=== PATIENT | male | born 1950 | race Hispanic/Latino ===

== ENCOUNTER → 2018-11-16 | Outpatient (CLI) | payer MEDICARE, BC ==
[~2018-11-16] MED LIST: AMLODIPINE BESYL5 MG PO; LEVAQUIN500 MG PO; LISINOPRIL10 MG PO; NAPROXEN250 MG PO; TYLENOL WITH C1 EACH PO
--- NOTE | 2018-11-16 10:54 | Diagnostic Imaging Report ---
EXAMINATION: CT of the abdomen and pelvis without contrast. TECHNIQUE: Spiral CT images of the abdomen and pelvis were performed from the lung bases to the lesser trochanters. No intravenous contrast was given per renal stone protocol. Coronal and sagittal reformatted images were obtained. RADIATION DOSE: DLP: 713.1 mGy-cm Dose modulation, iterative reconstruction, and/or weight based adjustment of the mA/kV was utilized to reduce the radiation dose to as low as reasonably achievable. COMPARISON: CT abdomen/pelvis 01/31/2017. CLINICAL HISTORY: Renal calculus. DISCUSSION: ABSENCE OF INTRAVENOUS CONTRAST DECREASES SENSITIVITY FOR DETECTION OF FOCAL LESIONS AND VASCULAR PATHOLOGY. LOWER THORAX: A 4 mm right middle lobe subpleural nodule is unchanged from CT on 01/31/2017. Patchy dependent atelectasis. Mild subpleural reticular opacities in the lower lobes could represent mild interstitial changes. HEPATOBILIARY:No focal hepatic lesions. Similar appearance of multiple hepatic cysts. No biliary ductal dilation. The gallbladder is unremarkable. SPLEEN: No splenomegaly. PANCREAS: No evidence of focal masses or ductal dilatation. ADRENALS: No adrenal nodules. KIDNEYS/URETERS: Again noted is bilateral renal rotation, left greater than right. There is been interval increase in size of bilateral nonobstructing renal stones. For example, a 4 mm left upper pole stone, previously 2 mm. Interval development of an 8 mm right lower pole renal stone. No evidence of ureteral stone. PELVIC ORGANS/BLADDER: The bladder is partially decompressed. PERITONEUM/RETROPERITONEUM: No free air or fluid. LYMPH NODES: No evidence of lymphadenopathy. VESSELS: There are moderate atherosclerotic calcifications in the aorta and branch vessels. GI TRACT: No distention or wall thickening. Diverticulosis without evidence of diverticulitis. The appendix is not well-visualized, however there are no secondary signs of appendicitis. BONES AND SOFT TISSUES: No bony destructive lesions. Mild degenerative changes of the lower lumbar spine. IMPRESSION: Enlarging bilateral nonobstructing renal stones. New 8 mm right lower pole renal stone. No evidence of hydronephrosis or ureteral stone. Signed by: Dr. Nguyen Calderon MD on 11/16/2018 10:51 AM
== END ==
LOC: CT 09:21
PROVIDERS: ATTEND Urology
DX: N20.0 Calculus of kidney (principal)
CPT/HCPCS: 74176

== ENCOUNTER → 2019-01-09 | Day surgery (SDC) | payer MEDICARE, BC ==
[2019-01-03 12:45] LABS: BASOPHILS # (AUTO) 0.1 (0.0-0.1); BASOPHILS % 0.7 % (0.0-1.0); EOSINOPHILS # (AUTO) 0.1 (0.0-0.4); EOSINOPHILS % 1.6 % (0.0-6.0); HEMATOCRIT 44.6 % (38.2-49.6); HEMOGLOBIN 15.1 g/dL (14.0-18.0); LYMPHOCYTES # (AUTO) 1.6 (1.0-3.2); LYMPHOCYTES % 23.3 % (18.0-39.1); MEAN CORPUSCULAR HEMOGLOBIN 29.1 pg (28-32); MEAN CORPUSCULAR HGB CONC 33.9 g/dL (31-35); MEAN CORPUSCULAR VOLUME 85.9 fL (81-99); MONOCYTES # (AUTO) 0.6 (0.2-0.8); MONOCYTES % 8.4 % (4.4-11.3); NEUTROPHILS # (AUTO) 4.6 (2.1-6.9); NEUTROPHILS % 65.3 % (38.7-80.0); PLATELET COUNT 225 x10e3/uL (140-360); RED BLOOD COUNT 5.19 x10e6/uL (4.3-5.7); RED CELL DISTRIBUTION WIDTH 14.8 % (11.7-14.4)
[2019-01-03 13:05] LABS: ANION GAP 13.8 mmol/L (8-16); BLOOD UREA NITROGEN 13 mg/dL (7-26); BUN/CREATININE RATIO 20 (6-25); CALCIUM 10.1 mg/dL (8.4-10.2); CARBON DIOXIDE 19 mmol/L (22-29); CHLORIDE 105 mmol/L (98-107); CREATININE, SERUM 0.66 mg/dL (0.72-1.25); EST GLOMERULAR FILTRATION RATE > 60 ML/MIN (60-); GLUCOSE 104 mg/dL (74-118); POTASSIUM 3.8 mmol/L (3.5-5.1); SODIUM 134 mmol/L (136-145)
--- NOTE | 2019-01-03 13:25 | Diagnostic Imaging Report ---
EXAMINATION: CHEST 2 VIEWS INDICATION: Pre-admit. COMPARISON: CT ABdomen/Pelvis 11/16/2018. FINDINGS: TUBES and LINES: None. LUNGS: Low lung volumes which decreases sensitivity and specificity for pathology. No evidence of pneumonia or pulmonary edema. Right middle lobe pulmonary nodule noted on CT from 11/16/2018 is not well-visualized by radiograph. PLEURA: No pleural effusion or pneumothorax. HEART AND MEDIASTINUM: The cardiomediastinal silhouette is unremarkable. BONES AND SOFT TISSUES: No acute osseous abnormality. UPPER ABDOMEN: No free air under the diaphragm. IMPRESSION: No acute radiographic abnormality. Signed by: Dr. Nguyen Calderon MD on 01/03/2019 1:22 PM
--- NOTE | 2019-01-03 15:08 | Diagnostic Imaging Report ---
Exam: KUB - 2 views Clinical History: Renal stone. Comparison: CT Abdomen/Pelvis without contrast 11/16/2018. Findings: Multiple right-sided renal calcifications, measuring up to 8 mm in the lower pole. Bowel gas partially obscures visualization of the left kidney. A 3 mm calcification projects over the left upper pole kidney, corresponding to the stone noted on prior CT. No evidence of ureteral stone. Nonobstructive bowel gas pattern. No acute osseous abnormality. Atherosclerotic vascular calcifications. Impression: Bilateral renal stones, measuring up to 8 mm in the right lower pole. Signed by: Dr. Nguyen Calderon MD on 01/03/2019 3:05 PM
[~2019-01-09] MED LIST changes: +B&O 60MG R/S 60 MG SUPP PR ONE; +CEFTRIAXONE SOD 1 GM/NS 50 ML 50 ML IV ONE; +DEXAMETHASONE SOD PHOS INJ 4 MG/ML VIAL ONE; +FENTANYL CITRATE/PF 100MCG/2 ML INJ ONE; +GLYCOPYRROLATE INJ 1MG/ 5 ML SYR ONE; +IBUPROFEN400 MG PO; +IOPAMIDOL 610MG/1ML 300 MG/ML VIAL IV ONE; +LIDOCAINE HCL 2% LOCAL INJ 5 ML SDV VIAL INJ ONE; +MIDAZOLAM HCL 2 MG/2 ML VIAL ONE; +ONDANSETRON HCL INJ 2MG/ML 2ML 2 MG/ML VIAL ONE; +PROPOFOL IV EMULSION 10 MG/ML 20 ML VIAL ONE; +SEVOFLURANE INHAL SOLN 250 ML PEN BTL ONE
--- OUTSIDE RECORDS SUMMARY | 2019-01-09 08:22 | XMS REPORT | Clinical Summary ---
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 11/19/2018 Discontinued amLODIPine (NORVASC) 5 mg TK 1 T PO QD 5 tablet FOR 7 HYPERTENSION 03/28/2018 Discontinued hydroCHLOROthiazide TK ONE T PO 2 (HYDRODIURIL) 12.5 MG QD 7 tablet 03/28/2018 Discontinued traZODone (DESYREL) 100 TK 1 T PO 2 MG tablet QHS 7 02/14/2018 Discontinued ibuprofen (ADVIL,MOTRIN) TAKE 1 TABLET 270 tablet 0 600 MG tablet BY MOUTH 8 THREE TIMES DAILY AFTER MEALS( STOP RELAFEN) 09/18/2018 Discontinued ibuprofen (ADVIL,MOTRIN) One tablet 4 120 tablet 0 600 MG tabletIndications: times a day 8 Lumbar stenosis with with food as neurogenic claudication, needed Status post lumbar laminectomy 07/05/2018 Discontinued escitalopram (LEXAPRO) 20 0 201 MG tablet 8 04/27/2018 ibuprofen (ADVIL,MOTRIN) Take 1 tablet 90 tablet 0 800 MG tablet (800 mg 8 total) by mouth every 6 (six) hours as needed for mild pain for up to 30 days. 05/09/2018 Discontinued naproxen (NAPROSYN) 500 Take 500 mg 0 MG tablet by mouth 2 (two) times a day with meals. 06/08/2018 ibuprofen (ADVIL,MOTRIN) Take 1 tablet 60 tablet 0 800 MG tablet (800 mg 8 total) by mouth every 8 (eight) hours as needed for mild pain or moderate pain for up to 30 days. 05/19/2018 acetaminophen-codeine Take 1 tablet 30 tablet 0 (TYLENOL WITH CODEINE #3) by mouth 8 300-30 mg per tablet every 6 (six) hours as needed for moderate pain for up to 10 days. 06/06/2018 Discontinued meloxicam (MOBIC) 7.5 mg TK 1 T PO Q 2 tablet 12 H 8 06/11/2018 Discontinued diclofenac (VOLTAREN) 1 % 2 grams 3 Tube 2 gel topically QID 8 07/06/2018 acetaminophen-codeine Take 1 tablet 30 tablet 0 (TYLENOL WITH CODEINE #3) by mouth 8 300-30 mg per tablet every 6 (six) hours as needed for moderate pain for up to 30 days. 07/05/2018 Discontinued diclofenac (VOLTAREN) 1 % Apply 2 grams 3 Tube 2 gelIndications: Right to Rt elbow 8 lateral epicondylitis QID. 11/19/2018 Discontinued ibuprofen (ADVIL,MOTRIN) TAKE 1 TABLET 120 tablet 0 600 MG tabletIndications: BY MOUTH FOUR 9 Lumbar stenosis with TIMES DAILY neurogenic claudication, WITH FOOD Status post lumbar NEEDED laminectomy Status Hospital, Clinic, or Ordered Dose Route Frequency Start End Date Other Facility Date Administered Medication Discontinued lidocaine (XYLOCAINE) 10 15 mg inj once 03/12/20 mg/mL (1 %) injection 15 18 8 mg Active Problems Problem Noted Date Primary osteoarthritis of both hips 11/19/2018 Lumbar radiculopathy 10/22/2018 Wheelchair dependence 10/22/2018 Bilateral paresis 10/22/2018 Lumbosacral radiculopathy due to degenerative joint disease of spine 10/22/2018 Acute pain of right shoulder 05/09/2018 Primary osteoarthritis of right shoulder 05/09/2018 Lateral epicondylitis of right elbow 04/11/2018 DDD (degenerative disc disease), lumbar 04/11/2018 Bilateral hip pain 03/08/2018 Bilateral hip joint arthritis 03/08/2018 Status post lumbar laminectomy 11/09/2017 Primary osteoarthritis of right hip 10/06/2017 Primary osteoarthritis of left hip 09/08/2017 Aftercare following surgery of the musculoskeletal system 08/09/2017 Lumbar stenosis with neurogenic claudication 07/10/2017 Overview: Added automatically from request for surgery [id number] Degenerative lumbar spinal stenosis 06/26/2017 Multiple joint pain 06/20/2017 Chronic bilateral low back pain 06/20/2017 Hypercalcemia 11/05/2012 Encounters Care Team Description Date Type Specialty Fawn Martinez MD Lumbar radiculopathy (Primary Dx); Right foot drop 12/27/2018 Orders Only Physical Medicine and Rehabilitation Oli Cameron MD Primary osteoarthritis of both hips (Primary Dx); Bilateral hip pain; Left hip pain; Multiple joint pain 11/19/2018 Office Visit Orthopedic Surgery Fawn Martinez MD Lumbosacral radiculopathy due to degenerative joint disease of spine (Primary Dx); Right foot drop; Lumbar radiculopathy; Chronic bilateral low back pain, with sciatica presence unspecified; Bilateral hip pain; Primary osteoarthritis of right shoulder; Bilateral hip joint arthritis; Wheelchair dependence 10/22/2018 Office Visit Physical Medicine and Rehabilitation Fawn Martinez MD Decreased mobility (Primary Dx) 10/19/2018 Transcribe Physical Therapy Orders Oli Cameron MD DDD (degenerative disc disease), lumbar; Status post lumbar laminectomy 10/02/2018 Hospital Radiology Encounter Katie Solis 10/02/2018 Telephone Employee Health Oli Cameron MD DDD (degenerative disc disease), lumbar (Primary Dx); Status post lumbar laminectomy 2018 Office Visit Orthopedic Surgery Brodie Lui MD Lumbar stenosis with neurogenic claudication; Status post lumbar laminectomy 09/18/2018 Refill Orthopedic Surgery Oli Cameron MD Degenerative lumbar spinal stenosis; Status post lumbar laminectomy 07/09/2018 Hospital Radiology Encounter Oli Cameron MD Degenerative lumbar spinal stenosis (Primary Dx); Status post lumbar laminectomy 07/05/2018 Office Visit Orthopedic Surgery System, Provider Not In, Tendonitis (Primary Dx) 06/19/2018 Transcribe Radiology Orders Jillian Vargas MA 06/18/2018 Telephone Orthopedic Surgery Marika Lui RN Right lateral epicondylitis (Primary Dx) 06/11/2018 Refill Orthopedic Surgery Brodie Lui MD Lateral epicondylitis of right elbow (Primary Dx) 06/06/2018 Office Visit Orthopedic Surgery Oli Cameron MD Lumbar stenosis with neurogenic claudication (Primary Dx) 05/10/2018 Office Visit Orthopedic Surgery Kaela Barker MA Primary osteoarthritis of right shoulder (Primary Dx); Acute pain of right shoulder; Right lateral epicondylitis 05/10/2018 Orders Only Orthopedic Surgery Brodie Lui MD Acute pain of right shoulder (Primary Dx); Primary osteoarthritis of right shoulder; Lateral epicondylitis of right elbow 05/09/2018 Office Visit Orthopedic Surgery Oli Cameron MD Postlaminectomy syndrome of lumbar region; Left leg pain 04/23/2018 Hospital Radiology Encounter Oli Cameron MD Lumbar stenosis with neurogenic claudication (Primary Dx); Status post lumbar laminectomy 04/19/2018 Office Visit Orthopedic Surgery Kaela Barker MA Postlaminectomy syndrome of lumbar region (Primary Dx); Left leg pain 04/19/2018 Orders Only Orthopedic Surgery Fawn Martinez MD Decreased mobility (Primary Dx) 04/16/2018 Transcribe Physical Therapy Orders Brodie Lui MD Lateral epicondylitis of right elbow (Primary Dx); DDD (degenerative disc disease), lumbar; Primary osteoarthritis of both hips; Aftercare following surgery of the musculoskeletal system; Degenerative lumbar spinal stenosis; Bilateral hip joint arthritis 04/11/2018 Office Visit Orthopedic Surgery Brodie Lui MD Primary osteoarthritis of left hip (Primary Dx); Primary osteoarthritis of right hip; Lumbar stenosis with neurogenic claudication; Chronic bilateral low back pain, with sciatica presence unspecified 03/28/2018 Office Visit Orthopedic Surgery Brodie Lui MD Bilateral hip pain (Primary Dx); Degenerative lumbar spinal stenosis; Bilateral hip joint arthritis 03/07/2018 Office Visit Orthopedic Surgery Oli Cameron MD Lumbar stenosis with neurogenic claudication (Primary Dx); Status post lumbar laminectomy 02/14/2018 Office Visit Orthopedic Surgery after 01/08/2018 Family History Medical History Relation Name Comments Hypertension Mother Relation Name Status Comments Father Mother Social History Date Tobacco Use Types Packs/Day Years Used Former Smoker Smokeless Tobacco: Former User Alcohol Use Drinks/Week oz/Week Comments Yes rarely Sex Assigned at Date Recorded Not on file Industry Job Start Date Occupation Not on file Not on file Not on file Travel End Travel History Travel Start No recent travel history available. 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 Temperature 36.2 C (97.2 F) 12/03/2018 11:17 AM CDT Respiratory Rate 18 11/29/2018 10:52 AM CDT Oxygen Saturation 92% - Inhaled Oxygen - Concentration 11/29/2018 10:52 AM CDT Weight 88.5 kg (195 lb) 10/02/2018 9:26 AM [employer]ER[employer] SUPERVISOR Height 160 cm (5' 3") 10/02/2018 9:26 AM [employer] SUPERVISOR Body Mass Index 34.54 Plan of Treatment Care Team Description Date Type Specialty Zoraida Díaz, [address] [facility] [address] [place] [id number] 03/15/2019 Office Visit Rheumatology Fawn Martinez MD [address] [facility] [address] [place] [id number] 04/24/2019 Office Visit Physical Medicine and Rehabilitation Health Maintenance Due Date Last Done Comments COLON CANCER SCREENING 2001 SHINGLES VACCINES (#1) 2001 65+ PNEUMOCOCCAL VACCINE 2016 (1 of 2 - PCV13) PNEUMOCOCCAL 2016 POLYSACCHARIDE VACCINE AGE 65 AND OVER INFLUENZA VACCINE 03/07/2019 Implants Device Identifier Shelf Expiration Date Model / Serial / Lot Implanted Type Area Manufactur er [id number] / / Matrix [employer] Floseal 5ml W/ Humn F2 Surgical N/A: N/A [employer] - [id number] Implants; HEALTHCARE Implanted: Qty: 1 on 07/17/2017 by [employer]; Oli Nathan MD Extenders; Surgical Wires Procedures Comments Procedure Name Priority Date/Time Associated Diagnosis FL FLUOROSCOPY GUIDED Routine 12/03/2018 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 Bilateral hip pain FL FLUOROSCOPY GUIDED Routine 11/29/2018 Primary osteoarthritis of INJECTION 11:00 AM CDT both hips Bilateral hip pain XR HIP 2-3 VIEWS LEFT Routine 11/19/2018 Left hip pain 10:33 AM CDT VT MD SERVICE REQUIRED Routine 10/22/2018 Wheelchair dependence FOR PMD 8:45 AM CDT Lumbar radiculopathy Lumbosacral radiculopathy due to degenerative joint disease of spine IR EPIDURAL STEROID INJ Routine 10/02/2018 DDD (degenerative disc TRANSFORAM LUMBAR LEFT 10:47 AM POLIC[employer] CHANGE CLERKS SUPERVISOR disease), lumbar (NERVE ROOT BLOCK) Status post lumbar laminectomy IR EPIDURAL STEROID INJ Routine 07/09/2018 Degenerative lumbar TRANSFORAM LUMBAR LEFT 11:03 AM POLIC[employer] CHANGE CLERKS SUPERVISOR spinal stenosis (NERVE ROOT BLOCK) Status post lumbar laminectomy MRI UPPER EXTREMITY JOINT Routine 06/26/2018 Tendonitis WO CONTRAST RIGHT 10:59 AM [employer] CHANGE CLERKS SUPERVISOR MRI SHOULDER WO CONTRAST Routine 06/26/2018 Tendonitis RIGHT 10:59 AM [employer] CH[employer]ERKS SUPERVISOR XR SHOULDER 2+ VW RIGHT Routine 05/09/2018 Acute pain of right 10:53 AM CDT shoulder VT ARTHROCENTESIS Routine 05/09/2018 Acute pain of right ASPIR&/INJ MAJOR JT/BURSA 10:20 AM CDT shoulder W/O US Primary osteoarthritis of right shoulder IR EPIDURAL STEROID INJ Routine 04/23/2018 Postlaminectomy syndrome TRANSFORAM LUMBAR LEFT 2:40 PM CDT of lumbar region (NERVE ROOT BLOCK) Left leg pain XR ELBOW 3+ VW RIGHT Routine 04/11/2018 Lateral epicondylitis of 11:01 AM CDT right elbow MRI LUMBAR SPINE W WO Routine 04/02/2018 Lumbar stenosis with CONTRAST 11:34 AM CDT neurogenic claudication POC CREATININE Routine 04/02/2018 11:10 AM CDT ESTIMATED GFR Routine 04/02/2018 11:10 AM CDT FL FLUOROSCOPY GUIDED Routine 03/12/2018 Bilateral hip pain INJECTION 11:46 AM CDT FL FLUOROSCOPY GUIDED Routine 03/12/2018 Bilateral hip pain INJECTION 11:00 AM CDT XR HIPS BILATERAL AP Routine 03/07/2018 Bilateral hip pain LATERAL W AP PELVIS 3:08 PM CDT XR LUMBAR SPINE COMPLETE Routine 02/14/2018 Lumbar stenosis with 4+ VW 10:42 AM CDT neurogenic claudication Status post lumbar laminectomy after 01/08/2018 Results * FL Fluoroscopy Guided Injection (12/03/2018 12:00 PM CDT) Only the most recent of 4 results within the time period is included. Specimen Narrative Performed At EXAMINATION:FL FLUOROSCOPY GUIDED INJECTION [facility] CLINICAL HISTORY:M16.0 Bilateral primary osteoarthritis of hip, M25.551 Pain in right hip, RIGHT HIP PAIN COMPARISON:None. Radiation dose:29.792 mGy IMPRESSION: 1.After obtaining patient consent, patient was prepared and draped in usual sterile fashion. 1% lidocaine was used for local anesthesia. Using fluoroscopic guidance and a 22-gauge needle, the right hip joint space was accessed, and a small amount of contrast was placed into the joint to confirm positioning. Subsequently, anesthetic/steroid mixture were placed into the joint as per ordering physician's request. [id number] Procedure Note Hm Interface, Radiology Results Incoming - 12/03/2018 4:57 PM CDT EXAMINATION: FL FLUOROSCOPY GUIDED INJECTION CLINICAL HISTORY: M16.0 Bilateral primary osteoarthritis of hip, M25.551 Pain in right hip, RIGHT HIP PAIN COMPARISON: None. Radiation dose: 29.792 mGy IMPRESSION: 1. After obtaining patient consent, patient was prepared and draped in usual sterile fashion. 1% lidocaine was used for local anesthesia. Using fluoroscopic guidance and a 22-gauge needle, the right hip joint space was accessed, and a small amount of contrast was placed into the joint to confirm positioning. Subsequently, anesthetic/steroid mixture were placed into the joint as per ordering physician's request. [id number] Performing Organization Address City/[facility]/Zipcode Phone Number [facility] [address] [place] [address] * XR Hip 2-3 View Left (11/19/2018 10:33 AM CDT) Specimen Narrative Performed At [facility] AP and lateral x-rays of the left hip demonstrate mild medial joint space narrowing.No periarticular osteophytes are noted.No soft tissue calcifications are seen.No lytic or blastic lesions within the pelvis are noted. Performing Organization Address [facility]/Rustcode Phone Number [facility] [address] [place] [address] * Mobility Exam (10/22/2018 8:45 AM CDT) Narrative Performed At Fawn Martinez MD 10/22/20184:28 PM Mobility Exam Date/Time: 10/22/2018 9:10 AM Performed by: Fawn Martinez MD Authorized by: Fawn Martinez MD Medical conditon(s)/disease(s) limiting patient's mobility in home: Paraplegia/Paraparesis Physical Exam - Symptoms/ Limitations / Pain: SYMPTOMS:Risk of Falls, History of Falls, Abnormal Gait, Unsafe Gait and Balance Deficits Upper Body Weakness:Mild Upper Body Pain:Mild Upper Body Range of Motion:Partially Limited Lower Body Weakness:Moderate Lower Body Pain:Moderate Lower Body Range of Motion:Partially Limited PAIN LOCATION:R Elbow, L Elbow, R Wrist, L Wrist, R Hand, L Hand, R Hip, L Hip, R Thigh, L Thigh, R Knee, L Knee, R Ankle, L Ankle, Lower Back, L Shoulder and R Shoulder Mobility Questions: Patient has ability to stand from seated position without assistance?: No Patient Transfer:Moderate Assistance Can patient lift themselves from seated surface using only upper extremities?: No History of pressure sores?: No Current pressure sores?: No Upper Extremity Edema: No Lower Extremity Edema: Yes LE Edema Severity:Mild Mobility Related Activities of Daily Living: Without a mobility aid, how far can patient walk without stopping (ft)?: 0 Distance allows patient to complete MRADL in safe and timely manner?: No Select all MRADL that patient is unable to accomplish due to mobility limitations.:Dressing, Grooming, Light Housekeeping, Toileting, Eating, Meal Prep, Bathing and Moving from Room to Room Is patient willing and have cogintion, judgment and/or vision to independently participate in MRADLs with a mobility device?: Yes Will a cane or walker allow patient to complete all MRADLs safely and timely?: No Does patient have sufficient upper and/or lower extremity strength to self-propel an optimally configured manual wheelchair to complete all MRADLs safely and timely?: No Scooter use requires a patient to have sufficient trunk strength, 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 Given these requirements, is a scooter appropriate?: No Reason(s):Patient has insufficient upper extremity function and/or strength, Patient has insufficient trunk stability and Patient does not have sufficient balance to sit upright Does the patient have the functional ability to consistently access a drive controland the cognition, judgment, and visual ability to safely operate a power wheelchair to participate in MRADLs within their home?: Yes Patient requires OT/PT Functional Mobility Assessment?: Yes * IR Epidural Steroid Inj Transforam Lumbar Left (Nerve Root Block) (10/02/2018 10:47 AM POLICY CHANGE [employer]ERKS SUPERVISOR) Only the most recent of 3 results within the time period is included. Specimen Narrative Performed At EXAMINATION:IR EPIDURAL STEROID INJ TRANSFORAM LUMBAR LEFT (NERVE ROOT HM [facility] BLOCK) CLINICAL HISTORY:M51.36 Other intervertebral disc degenerationlumbar region, Z98.890 Other specified postprocedural states, left leg pain COMPARISON:None. Findings: Informed consent was obtained. Lower back was prepped and draped in usual sterile fashion. 1% lidocaine was used for local anesthesia. Under intermittent fluoroscopic guidance, a 25-gauge, 5 inch needle was advanced into the lateral aspect of the left L4-5 foramen. 2 cc of Omnipaque 240 were injected and showed good opacification of the left L4 nerve root sleeve. Then 1 cc of Marcaine 0.5% and 4 mg of Dexamethasone were injected. No complications. Total fluoroscopic time was 0.4 minutes. Total air kerma was 49 mGy. IMPRESSION: Successful fluoroscopic guided left L4-5 transforaminal epidural steroid injection.. [id number] Procedure Note Interface, Radiology Results Incoming - 10/02/2018 12:13 PM POLICY CHANGE CLERKS SUPERVISOR EXAMINATION: IR EPIDURAL STEROID INJ TRANSFORAM LUMBAR LEFT (NERVE ROOT BLOCK) CLINICAL HISTORY: M51.36 Other intervertebral disc degeneration lumbar region, Z98.890 Other specified postprocedural states, left leg pain COMPARISON: None. Findings: Informed consent was obtained. Lower back was prepped and draped in usual sterile fashion. 1% lidocaine was used for local anesthesia. Under intermittent fluoroscopic guidance, a 25-gauge, 5 inch needle was advanced into the lateral aspect of the left L4-5 foramen. 2 cc of Omnipaque 240 were injected and showed good opacification of the left L4 nerve root sleeve. Then 1 cc of Marcaine 0.5% and 4 mg of Dexamethasone were injected. No complications. Total fluoroscopic time was 0.4 minutes. Total air kerma was 49 mGy. IMPRESSION: Successful fluoroscopic guided left L4-5 transforaminal epidural steroid injection.. [id number] Performing Organization Address City/State/Zipcode Phone Number [facility] [address] [place] [address] * MRI Upper Extremity Joint Wo Contrast Right (06/26/2018 10:59 AM POLICY CHANGE CLERKS SUPERVISOR) Specimen [facility]arrative [facility] At [facility] EXAMINATION:MRI UPPER EXTREMITY JOINT WO CONTRAST RIGHT CLINICAL HISTORY: M77.9 Enthesopathyunspecified, TENDONITIS COMPARISON:Right elbow radiographs from April 11, 2018 TECHNIQUE: Multiplanar, multisequence MR imaging of the right elbow was performed without contrast. . Parallel and perpendicular FABS sequences were also obtained FINDINGS: 1, Marrow: No fractures. Subchondral cystic changes are present within the radius and capitellum with loss of articular cartilage. 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 2. Distal Insertions: The distal insertions of the biceps, brachialis and triceps tendons are intact. 3. Common Origins: Interstitial fluid signal abnormality is noted at the common extensor tendon origin. Common flexor origin is intact. 4. Ligaments: *Medial Ligaments: The anterior band of the medial collateral ligament is intact. *Lateral Ligaments: Attenuation of the radial collateral ligament suggests sprain. Lateral ulnar collateral ligament is intact. 5. Ulnar Nerve: Minimally increased signal abnormality within the ulnar nerve at the cubital tunnel. 6. Effusion: No joint effusion or loose body. 7. Soft tissues:No fluid collections, masses or edema. IMPRESSION: 1.Partial tear of the common extensor tendon origin and sprain of the radial collateral ligament. 2.Moderate radiocapitellar degenerative changes. 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 [id number] Procedure Note Hm Interface, Radiology Results Incoming - 06/26/2018 4:29 PM POLICY CHANGE CLERKS SUPERVISOR EXAMINATION: MRI UPPER EXTREMITY JOINT WO CONTRAST RIGHT CLINICAL HISTORY: M77.9 Enthesopathy unspecified, TENDONITIS COMPARISON: Right elbow radiographs from April 11, 2018 TECHNIQUE: Multiplanar, multisequence MR imaging of the right elbow was performed without contrast. . Parallel and perpendicular FABS sequences were also obtained FINDINGS: 1, Marrow: No fractures. Subchondral cystic changes are present within the radius and capitellum with loss of articular cartilage. 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 2. Distal Insertions: The distal insertions of the biceps, brachialis and triceps tendons are intact. 3. Common Origins: Interstitial fluid signal abnormality is noted at the common extensor tendon origin. Common flexor origin is intact. 4. Ligaments: * Medial Ligaments: The anterior band of the medial collateral ligament is intact. * Lateral Ligaments: Attenuation of the radial collateral ligament suggests sprain. Lateral ulnar collateral ligament is intact. 5. Ulnar Nerve: Minimally increased signal abnormality within the ulnar nerve at the cubital tunnel. 6. Effusion: No joint effusion or loose body. 7. Soft tissues:No fluid collections, masses or edema. IMPRESSION: 1. Partial tear of the common extensor tendon origin and sprain of the radial collateral ligament. 2. Moderate radiocapitellar degenerative changes. 3. 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 [id number] Performing Organization Address City/State/Zipcode Phone Number [facility] [address] [place] [address] * MRI Shoulder Wo Contrast Right (06/26/2018 10:59 AM POLICY CHANGE CLERKS SUPERVISOR) Specimen Narrative Performed At EXAMINATION:MRI SHOULDER WO CONTRAST RIGHT [facility] CLINICAL HISTORY:M77.9 Enthesopathyunspecified, TENDONITIS TECHNIQUE:Multiplanar multisequence MR imaging of the shoulder was performed without contrast. COMPARISON:Right shoulder radiographs from May 09, 2018 FINDINGS: 1. Rotator cuff: Mild subscapularis tendinosis. Mild bursal surface fraying of the supraspinatus. Infraspinatus and teres minor are intact.. No muscle atrophy. 2. Bursa: No subacromial-subdeltoid bursitis. 3. Biceps tendon: Long head of the biceps tendon intact. 4. Labrum: Near circumferential degeneration and tearing. 5. AC joint: Moderate AC joint degenerative arthritis. 6. Glenohumeral joint: Extensive subchondral cystic change within the glenoid and humeral head. 7. Articular cartilage: Complete loss of articular cartilage. 8. Joint Fluid:No joint effusion. Physiologic joint fluid. 9. Bone marrow: Subchondral cystic change of the glenoid and humeral head as above. Mild articular surface collapse is also seen. 10. Soft tissues: No mass, fluid collection or hematoma. IMPRESSION: Severe degenerative changes of the glenohumeral joint as above. Mild rotator cuff tendinosis without tear. Moderate acromioclavicular joint degenerative changes. [facility]-[id number] Procedure Note Interface, Radiology Results Incoming - 06/26/2018 11:09 AM POLICY CHANGE CLERKS SUPERVISOR EXAMINATION: MRI SHOULDER WO CONTRAST RIGHT CLINICAL HISTORY: M77.9 Enthesopathy unspecified, TENDONITIS TECHNIQUE: Multiplanar multisequence MR imaging of the shoulder was performed without contrast. COMPARISON: Right shoulder radiographs from May 09, 2018 FINDINGS: 1. Rotator cuff: Mild subscapularis tendinosis. Mild bursal surface fraying of the supraspinatus. Infraspinatus and teres minor are intact.. No muscle atrophy. 2. Bursa: No subacromial-subdeltoid bursitis. 3. Biceps tendon: Long head of the biceps tendon intact. 4. Labrum: Near circumferential degeneration and tearing. 5. AC joint: Moderate AC joint degenerative arthritis. 6. Glenohumeral joint: Extensive subchondral cystic change within the glenoid and humeral head. 7. Articular cartilage: Complete loss of articular cartilage. 8. Joint Fluid:No joint effusion. Physiologic joint fluid. 9. Bone marrow: Subchondral cystic change of the glenoid and humeral head as above. Mild articular surface collapse is also seen. 10. Soft tissues: No mass, fluid collection or hematoma. IMPRESSION: Severe degenerative changes of the glenohumeral joint as above. Mild rotator cuff tendinosis without tear. Moderate acromioclavicular joint degenerative changes. [facility]-[id number] Performing Organization Address [facility]/[place] Phone Number [facility] [address] [place] [address] * XR Shoulder 2+ Vw Right (05/09/2018 10:53 AM CDT) Specimen Narrative Performed At [facility] Osteoporosis, significant diffuse degenerative changes of the glenohumeral joint with cystic changes of the humeral head. Performing Organization Address [facility]/[place] Phone Number [facility] [address] [place] [address] * Large Joint Arthrocentesis (05/09/2018 10:20 AM CDT) Narrative Performed At Brodie Lui MD 05/09/20181:06 PM Large Joint Arthrocentesis Consent given by: patient Supporting Documentation Indications: pain Procedure Details Ultrasound guided: no Location: shoulder - R glenohumeral Right side: Needle size (right): 25 G. Approach: anterolateral Right shoulder medications administered: 1 mL lidocaine 10 mg/mL (1 %); 6 mg betamethasone acetate & sodium phosphate 6 mg/mL (3mg betamethasone acet, sod phos 3mg/ml) Patient tolerance: patient tolerated the procedure well with no immediate complications * XR Elbow 3+ Vw Right (04/11/2018 11:01 AM CDT) Specimen Narrative Performed At [facility] Normal bony architecture Performing Organization Address [facility]/[place] Phone Number [facility] [address] [place] [address] * MRI Lumbar Spine W Wo Contrast (04/02/2018 11:34 AM CDT) Specimen Narrative Performed At [facility] EXAMINATION: MRI LUMBAR SPINE W WO CONTRAST CLINICAL HISTORY: M48.062 Spinal stenosislumbar region with neurogenic claudication, L S-spine stenosis, 07 17 2017 Central L4-5 decompressive laminectomyplease compare to preoperative MRI COMPARISON:MRI lumbar spine dated June 21, 2017 TECHNIQUE: Multiplanar multisequence pre and post contrast enhanced examination was performed of the Lumbar spine. FINDINGS: Vertebral body heights are maintained without acute fracture. No focal significant marrow signal abnormality is appreciated. No significant enhancing abnormality is noted on the postcontrast images. Soft tissues shows no mass, adenopathy or aneurysm. The partially visualized spinal cord and the conus are unremarkable. Lumbar spine alignment is grossly preserved with normal lordosis without significant subluxation. Axial images through the disc spaces demonstrate the following: L1-L2: There is mild disc bulge slightly asymmetric towards the left with a small left paracentral protrusion which is new from prior exam with mild effacement of the thecal sac and left lateral recess. Disc osteophyte complex and facet disease results in mild left foraminal narrowing which is new. Right foramen is patent. L2-L3: There is minimal disc bulge and facet changes without canal narrowing. The lateral recesses and foramina are also patent. L3-L4: There is mild disc bulge and facet hypertrophy with minimal effacement of the thecal sac and lateral recesses. There is minimal effacement of the inferior foramina, bilaterally. There is 1 mm retrolisthesis of L3. Findings are stable. L4-L5: There is diffuse disc bulge with facet hypertrophy. Laminectomy changes are now noted at this level with improvement of the left lateral recess narrowing which is mild to moderate. The canal and right lateral recess are widely patent. Disc osteophyte complex bilateral foraminal protrusions with facet spurring are present with mild right and moderate left foraminal narrowing. The foraminal narrowing is slightly progressed from prior exam. There is direct abutment of the exiting left L4 nerve. Correlate for a left L4 radiculopathy to determine significance. L5-S1: There is mild disc bulge with mild effacement of the thecal sac without significant stenosis. The foramina remain patent. No significant posterior disc disease, spinal canal or neural foraminal stenosis at other visualized levels. IMPRESSION: 1.At L1-L2 there is interval appearance of a small shallow left paracentral protrusion measuring 1.5 mm resulting in mild narrowing of the left lateral recess and inferior left foramen. 2.Interval laminectomy changes are noted at L4-5 with improvement of the left lateral recess narrowing which is only mild to moderate on current exam. However, there is progressive disc disease and foraminal protrusions with moderate left and mild right foraminal narrowing. There is direct abutment of the exiting left L4 nerve. Correlate for significance. [id number] Procedure Note Hm Interface, Radiology Results - 04/02/2018 12:03 PM CDT EXAMINATION: MRI LUMBAR SPINE W WO CONTRAST CLINICAL HISTORY: M48.062 Spinal stenosis lumbar region with neurogenic claudication, L S-spine stenosis, 12 2016 Central L4-5 decompressive laminectomy please compare to preoperative MRI COMPARISON: MRI lumbar spine dated June 21, 2017 TECHNIQUE: Multiplanar multisequence pre and post contrast enhanced examination was performed of the Lumbar spine. FINDINGS: Vertebral body heights are maintained without acute fracture. No focal significant marrow signal abnormality is appreciated. No significant enhancing abnormality is noted on the postcontrast images. Soft tissues shows no mass, adenopathy or aneurysm. The partially visualized spinal cord and the conus are unremarkable. Lumbar spine alignment is grossly preserved with normal lordosis without significant subluxation. Axial images through the disc spaces demonstrate the following: L1-L2: There is mild disc bulge slightly asymmetric towards the left with a small left paracentral protrusion which is new from prior exam with mild effacement of the thecal sac and left lateral recess. Disc osteophyte complex and facet disease results in mild left foraminal narrowing which is new. Right foramen is patent. L2-L3: There is minimal disc bulge and facet changes without canal narrowing. The lateral recesses and foramina are also patent. L3-L4: There is mild disc bulge and facet hypertrophy with minimal effacement of the thecal sac and lateral recesses. There is minimal effacement of the inferior foramina, bilaterally. There is 1 mm retrolisthesis of L3. Findings are stable. L4-L5: There is diffuse disc bulge with facet hypertrophy. Laminectomy changes are now noted at this level with improvement of the left lateral recess narrowing which is mild to moderate. The canal and right lateral recess are widely patent. Disc osteophyte complex bilateral foraminal protrusions with facet spurring are present with mild right and moderate left foraminal narrowing. The foraminal narrowing is slightly progressed from prior exam. There is direct abutment of the exiting left L4 nerve. Correlate for a left L4 radiculopathy to determine significance. L5-S1: There is mild disc bulge with mild effacement of the thecal sac without significant stenosis. The foramina remain patent. No significant posterior disc disease, spinal canal or neural foraminal stenosis at other visualized levels. IMPRESSION: 1. At L1-L2 there is interval appearance of a small shallow left paracentral protrusion measuring 1.5 mm resulting in mild narrowing of the left lateral recess and inferior left foramen. 2. Interval laminectomy changes are noted at L4-5 with improvement of the left lateral recess narrowing which is only mild to moderate on current exam. However, there is progressive disc disease and foraminal protrusions with moderate left and mild right foraminal narrowing. There is direct abutment of the exiting left L4 nerve. Correlate for significance. [id number] Performing Organization Address [facility]/[place] [address] * Estimated GFR (04/02/2018 11:10 AM CDT) Pathologist [facility] GFR Non Af Amer >90 mL/min/1.73 m2 [facility] DEPARTMENT OF PATHOLOGY AND GENOMIC MEDICINE GFR Af Amer >90 mL/min/1.73 m2 [facility] DEPARTMENT Comment: OF PATHOLOGY Chronic kidney disease: <60 AND GENOMIC mL/min/1.73m2 MEDICINE Kidney failure: <15 mL/min/1.73m2 The estimated GFR is calculated from the IDMS-traceable Modification of Diet in Renal Disease Equation. The accuracy of the calculation is poor when the creatinine is normal. Calculated values >90 mL/min/1.73m2 are not reported. This equation has not been validated in children (<18 years), women, the elderly (>70 years), or ethnic groups other than Caucasians and Americans. Specimen Blood Performing Organization Address [facility]/[place] Phone Number [facility] [place] [address] PATHOLOGY AND GENOMIC MEDICINE * POC creatinine (04/02/2018 11:10 AM CDT) Pathologist [facility] POC creatinine 0.6 (L) 0.7 - 1.2 mg/dl [facility] DEPARTMENT Comment: OF PATHOLOGY Meter ID: [id number] AND GENOMIC [employer]rofit Architect: Jenny Duckworth MEDICINE Specimen Blood Performing Organization Address [facility]/Zipcode Phone Number [facility] [place] [address] PATHOLOGY AND GENOMIC MEDICINE * XR Hips Bilateral Ap Lateral W Ap Pelvis (03/07/2018 3:08 PM CDT) Specimen Narrative Performed At [facility] Mild degenerative changes of the hip joints consistent with his age Performing Organization Address City/State/Zipcode Phone Number [facility] [address] [place] [address] * XR Lumbar Spine Complete 4+ Vw (02/14/2018 10:42 AM CDT) Specimen Narrative Performed At [facility] Lumbar spine x-rays and multiple views today reveal slightly increased lumbar lordotic curve with a grade 1 listhesis at L4-5.Overall bone density within the vertebral bodies appears to be diminished.No compression deformities are seen. Performing Organization Address City/State/Zipcode Phone Number [facility] [address] [place] [address] after 01/08/2018 Insurance Type Payer Benefit Subscriber ID Effective Phone Address Plan / Dates Group Medicare MEDICARE MEDICARE xxxxxxxxxxx 2016-P [place], PART A AND resent [place] B Indemnity BCBS BCBS xxxxxxxxxxxx 2016-P PAR/TRAD [place] PLAN Advance Directives Patient has advance care planning documents on file. For more information, teetee don contact: Matthew Jason [address] [place] [address]
--- OUTSIDE RECORDS SUMMARY | 2019-01-09 08:22 | XMS REPORT ---
Author Author Admin, Harman Organization [facility] Address [address] [place] [address] Phone Allergies, Adverse Reactions, Alerts Allergy Name Reaction Description Start Date Severity Status Provider No Known Allergies Pernell Isaacs MD Conditions or Problems Problem Name Problem Code Onset Date Status Entry Date Provider Comment Standard Description Annotate ANXIETY DISORDER, UNSPECIFIED Active Pernell Isaacs MD Anxiety state, unspecified DEPRESSIVE DISORDER, MAJOR, RECURRENT EPISODE, MILD Active Pernell Isaacs MD Major depressive disorder, recurrent episode, mild degree Obesity Active Pernell Isaacs MD Obesity, unspecified ANXIETY DISORDER NOS 300.00 Active Sravanthi Hopper MD Anxiety state, unspecified DEPRESSIVE DISORDER, MAJOR, SINGLE EPISODE, MODERATE 296.22 Active Sravanthi Hopper MD Major depressive disorder, single episode, moderate degree LOSS OF APPETITE 783.0 Active Chrissy Irby MD Anorexia NAUSEA 787.02 Active Chrissy Irby MD Nausea alone STRESS 308.0 Active Chrissy Irby MD Predominant disturbance of emotions VITAMIN D DEFICIENCY 268.9 Active Chrissy Irby MD Unspecified vitamin D deficiency WEIGHT LOSS 783.21 Active Chrissy Irby MD Loss of weight HYPERCALCEMIA 275.42 Active Chrissy Irby MD Hypercalcemia PROSTATE SPECIFIC ANTIGEN, ELEVATED 790.93 Active Chrissy Irby MD Elevated prostate specific antigen [PSA] HYPERLIPIDEMIA 272.4 Active Chrissy Irby MD Other and unspecified hyperlipidemia PERSONAL HISTORY OTHER DISORDER URINARY SYSTEM V13.09 Active Chrissy Irby MD Other personal history of disorders of urinary system PREDIABETES 790.29 Active Chrissy Irby MD Other abnormal glucose Hemoglobin A1c: 6.1 (07/20/2011) 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 Active Girish Palm ACNP Degeneration of intervertebral disc, site unspecified lumbar HYPERTENSION 401.1 Active Girish Palm ACNP Benign essential hypertension TOBACCO ABUSE 305.1 Active Girish Pickett ACNP Tobacco use disorder BACK PAIN ICD-724.5 Inactive Chrissy Irby MD HERNIA, HX OF ICD-V13.8 Inactive Chrissy Irby MD RENAL CALCULUS ICD-592.0 Inactive Chrissy Irby MD BACK PAIN 724.5 Resolved Chrissy Irby MD Backache, unspecified HERNIA, HX OF V13.8 Resolved Chrissy Irby MD Personal history of other specified diseases RENAL CALCULUS 592.0 Resolved Chrissy Irby MD Calculus of kidney Medication List Medication Instructions Start Date Stop Date Generic Name NDC Status Provider Patient Instruction MIRTAZAPINE 15 MG ORAL TABLET Take half a tablet nightly for a week, then increase to one tablet nightly. MIRTAZAPINE 37894809948 Active Angi Davila MD Active ENOVARX-IBUPROFEN CREAM Apply to area BID for 14 days. IBUPROFEN CREA 73850869534 Active Pernell Isaacs MD Active TRAZODONE HCL 150 MG ORAL TABLET Half to one tablet nightly. TRAZODONE HCL 26282780596 Active Angi Davila MD Active PROMETHAZINE HCL 25 MG ORAL TABLET 1 By Mouth Three Times a Day As Needed nausea PROMETHAZINE HCL 90810396142 Active Chrissy Irby MD Active ASPIRIN 81 MG ORAL TABLET 1 by mouth every day, heart protection ASPIRIN 42217636561 Active Chrissy Irby MD Active LISINOPRIL 40 MG ORAL TABLET 1 By Mouth Every Day, blood pressure LISINOPRIL 63339331813 Active Devora De Luna NP Active RAPAFLO 8 MG ORAL CAPSULE 1 By Mouth Every Day, prostate SILODOSIN 34437728139 Active Chrissy Irby MD Active TERAZOSIN HCL 2 MG ORAL CAPSULE 1 tab By Mouth [facility] TERAZOSIN HCL 60690913137 Active Girish Nieves CUEVAS Active CELEXA 20 MG ORAL TABLET 1 By Mouth Every a.m. CELEXA 20 MG ORAL TABLET 309791 CITALOPRAM HYDROBROMIDE Inactive AMLODIPINE BESYLATE 5 MG ORAL TABLET 1 tab by mouth daily, blood pressure AMLODIPINE BESYLATE 5 MG ORAL TABLET 967094 AMLODIPINE BESYLATE Inactive ETODOLAC 400 MG ORAL TABLET 1 By Mouth Every Day, pain/osteoarthritis ETODOLAC 400 MG ORAL TABLET 531432 ETODOLAC Inactive GABAPENTIN 300 MG ORAL CAPSULE 1 tab By Mouth [facility] GABAPENTIN 300 MG ORAL CAPSULE 711921 GABAPENTIN Inactive CELEXA 20 MG ORAL TABLET 1 By Mouth Every a.m. CITALOPRAM HYDROBROMIDE 39092057905 No Longer Active Pernell Isaacs MD Active AMLODIPINE BESYLATE 5 MG ORAL TABLET 1 tab by mouth daily, blood pressure AMLODIPINE BESYLATE 96870864015 No Longer Active Devora De Luna NP Active ETODOLAC 400 MG ORAL TABLET 1 By Mouth Every Day, pain/osteoarthritis ETODOLAC 30304969229 No Longer Active Chrissy Irby MD Active LISINOPRIL-HYDROCHLOROTHIAZIDE 20-12.5 MG ORAL TABLET 1 tab By Mouth qa LISINOPRIL-HYDROCHLOROTHIAZIDE 61756446398 No Longer Active Chrissy Irby MD Active GABAPENTIN 300 MG ORAL CAPSULE 1 tab By Mouth q GABAPENTIN 10968448495 No Longer Active Chrissy Irby MD Active LISINOPRIL 40 MG ORAL TABLET one half tablet by mouth daily LISINOPRIL 71685400876 No Longer Active Girish JARAMILLO Active Advance Directives Directive Description Start Date DISCUSSED - NO DECISION MADE Vital Signs Date Name Value Unit Range Description blood pressure, diastolic 71 mm[Hg] BP stark blood pressure, systolic 147 mm[Hg] BP sys height E&M 66 [in_us] Bdy height pulse rate E&M 83 /min Heart rate weight E&M 195.40 [lb_av] Weight Measured Diagnostic Results Date Name Value Unit Range Description Lab Report: CMP14+LP+2AC+CBC/D/Plt, Urinalysis, Complete, Microscopic Ex ... - Urinalysis mucus on urinalysis Present (Not Estab.) Lab Report: TSH+Free T4, CBC With Differential/Platelet, Comp. Metabolic ... - Chemistry thyroid stimulating hormone, serum 1.400 u[iU]/mL 0.450-4.500 Lab Report: CMP14+LP+2AC+CBC/D/Plt, Urinalysis, Complete, Microscopic Ex ... - Urinalysis WBC urine on microscopy 0-5 /hpf {Cells}/[HPF] (0 - 5) Lab Report: Comp. Metabolic Panel (14), Lipid Panel, Hemoglobin A1c, Pro ... - Chemistry very low density lipoproteins 15 mg/dL 5-40 Lab Report: CMP14+LP+2AC+CBC/D/Plt, Urinalysis, Complete, Microscopic Ex ... - Urinalysis epithelial cells, urine 0-10 /[LPF] (0 - 10) Lab Report: CMP14+LP+2AC+CBC/D/Plt, Urinalysis, Complete, Microscopic Ex ... - Chemistry hepatitis B surface antigen Negative (Negative) uric acid, serum 7.9 mg/dL (3.7-8.6) Lab Report: Comp. Metabolic Panel (14), Lipid Panel, Hemoglobin A1c, Pro ... - Chemistry chloride, serum 102 mmol/L 97-108 urea nitrogen, blood 15 mg/dL 8-27 Lab Report: CMP14+LP+2AC+CBC/D/Plt, Urinalysis, Complete, Microscopic Ex ... - Urinalysis leukocyte esterase, urine, by dipstick Negative (Negative) Lab Report: Vitamin D, 25-Hydroxy, Calcium, Ionized, Serum, PTH, Intact - Chemistry parathormone, serum 32 pg/mL 15-65 Lab Report: CBC With Differential/Platelet - Hematology mean corpuscular hemoglobin concentration, RBC 33.4 G/DL % 31.5-35.7 erythrocyte (RBC) count 5.19 X10E6/UL 10*6/mm3 4.14-5.80 Lab Report: CMP14+LP+2AC+CBC/D/Plt, Urinalysis, Complete, Microscopic Ex ... - Chemistry phosphate, serum 4.1 mg/dL (2.5-4.5) Lab Report: CMP14+LP+2AC+CBC/D/Plt, Urinalysis, Complete, Microscopic Ex ... - Serology hepatitis C antibody, serum <0.1 (0.0-0.9) Lab Report: CMP14+LP+2AC+CBC/D/Plt, Urinalysis, Complete, Microscopic Ex ... - Urinalysis urine color Yellow (Yellow) Lab Report: CBC With Differential/Platelet - Chemistry Absolute Neutrophils 7.0 X10E3/UL 10*3/uL 1.4-7.0 Lab Report: CMP14+LP+2AC+CBC/D/Plt, Urinalysis, Complete, Microscopic Ex ... - Urinalysis bilirubin, urine Negative (Negative) Lab Report: Comp. Metabolic Panel (14), Lipid Panel, Hemoglobin A1c, Pro ... - Chemistry LDL cholesterol, serum 98 mg/dL 0-99 urea nitrogen/creatinine ratio, serum 23 10-22 Lab Report: CBC With Differential/Platelet - Hematology mean corpuscular volume, RBC 91 fL 79-97 Lab Report: Comp. Metabolic Panel (14), Lipid Panel, Hemoglobin A1c, Pro ... - Chemistry HDL cholesterol, serum 57 mg/dL >39 Lab Report: CBC With Differential/Platelet - Hematology monocytes as percent of blood leukocytes 7 % 4-12 Lab Report: Comp. Metabolic Panel (14), Lipid Panel, Hemoglobin A1c, Pro ... - Chemistry albumin/globulin ratio, serum 1.6 1.1-2.5 creatinine, serum 0.66 mg/dL 0.76-1.27 cholesterol, serum 170 mg/dL 100-199 Lab Report: CMP14+LP+2AC+CBC/D/Plt, Urinalysis, Complete, Microscopic Ex ... - Serology hepatitis A antibody, IgM Negative (Negative) Lab Report: Comp. Metabolic Panel (14), Lipid Panel, Hemoglobin A1c, Pro ... - Chemistry bilirubin, serum, total 1.0 mg/dL 0.0-1.2 Lab Report: CBC With Differential/Platelet - Hematology Eosinophil Absolute Count 0.0 X10E3/UL 10*3/uL 0.0-0.4 Lab Report: CMP14+LP+2AC+CBC/D/Plt, Urinalysis, Complete, Microscopic Ex ... - Urinalysis appearance, urine Clear (Clear) Lab Report: Comp. Metabolic Panel (14), Lipid Panel, Hemoglobin A1c, Pro ... - Chemistry aspartate aminotransferase (SGOT), serum 12 U/L 0-40 Lab Report: CBC With Differential/Platelet - Hematology red blood cell distribution width 14.5 % 12.3-15.4 Lab Report: CMP14+LP+2AC+CBC/D/Plt, Urinalysis, Complete, Microscopic Ex ... - Urinalysis urinalysis, microscopic examination Microscopic follows if indicated. Lab Report: CBC With Differential/Platelet - Hematology leukocyte count, blood 8.5 X10E3/UL 10*3/mm3 3.4-10.8 Lab Report: CMP14+LP+2AC+CBC/D/Plt, Urinalysis, Complete, Microscopic Ex ... - Urinalysis pH, urine, semiquantitative 6.5 (5.0-7.5) Lab Report: Comp. Metabolic Panel (14), Lipid Panel, Hemoglobin A1c, Pro ... - Chemistry potassium, serum 4.5 mmol/L 3.5-5.2 Lab Report: CBC With Differential/Platelet - Chemistry immature granulocytes, percentage of total cells, blood 0 % 0-2 Lab Report: Comp. Metabolic Panel (14), Lipid Panel, Hemoglobin A1c, Pro ... - Chemistry albumin, serum 4.7 g/dL 3.6-4.8 Lab Report: CBC With Differential/Platelet - Hematology lymphocyte count, blood, automated 0.9 X10E3/UL 10*3/mm3 0.7-3.1 hematocrit, blood 47.3 % 37.5-51.0 Lab Report: Comp. Metabolic Panel (14), Lipid Panel, Hemoglobin A1c, Pro ... - Chemistry sodium, serum 137 mmol/L 134-144 Lab Report: CBC With Differential/Platelet - Hematology neutrophils as percent of blood leukocytes 82 % 40-74 Internal Correspondence: Pre-Visit Planning 07/16/14 - Other List of providers caring for patient Eunice Andres MD, Devora De Luna [employer] TRA[employer]ER [employer]SEMBLER, Bijal Bernal MA, Hyun Camarena MA, Bijal Orozco MA lab, Keo Gomez CTA, Pat Uribe RN Lab Report: CBC With Differential/Platelet - Hematology basophils as percent of blood leukocytes 0 % 0-3 Lab Report: CMP14+LP+2AC+CBC/D/Plt, Urinalysis, Complete, Microscopic Ex ... - Chemistry specific gravity, body fluid 1.019 (1.005-1.030) RBC, Urine 0-3 /hpf /[HPF] (0 - 3) Lab Report: CMP14+LP+2AC+CBC/D/Plt, Urinalysis, Complete, Microscopic Ex ... - Urinalysis protein, urine, semiquantitative (dipstick) Negative (Negative/Trace) Lab Report: CMP14+LP+2AC+CBC/D/Plt, Urinalysis, Complete, Microscopic Ex ... - Microbiology microscopic exam See below: Lab Report: Comp. Metabolic Panel (14), Lipid Panel, Hemoglobin A1c, Pro ... - Chemistry carbon dioxide, venous blood 18 mmol/L 19-28 Lab Report: CMP14+LP+2AC+CBC/D/Plt, Urinalysis, Complete, Microscopic Ex ... - Chemistry nitrate, urine Negative (Negative) Lab Report: Comp. Metabolic Panel (14), Lipid Panel, Hemoglobin A1c, Pro ... - Chemistry triglyceride, serum, fasting 73 mg/dL 0-149 calcium, serum 10.6 mg/dL 8.6-10.2 alanine aminotransferase (SGPT), serum 11 U/L 0-44 Lab Report: CBC With Differential/Platelet - Hematology mean corpuscular hemoglobin, RBC 30.4 pg 26.6-33.0 Lab Report: CMP14+LP+2AC+CBC/D/Plt, Urinalysis, Complete, Microscopic Ex ... - Urinalysis bacteria, urine microscopy None seen (None seen/Few) Lab Report: Comp. Metabolic Panel (14), Lipid Panel, Hemoglobin A1c, Pro ... - Chemistry protein, total, serum 7.6 g/dL 6.0-8.5 alkaline phosphatase, serum 117 U/L 44-103 Lab Report: CBC With Differential/Platelet - Hematology hemoglobin, blood 15.8 g/dL 12.6-17.7 lymphocytes as percent of blood leukocytes 11 % 14-46 Lab Report: Comp. Metabolic Panel (14), Lipid Panel, Hemoglobin A1c, Pro ... - Chemistry hemoglobin A1C, blood, as % of total hemoglobin 6.0 % 4.8-5.6 Lab Report: CMP14+LP+2AC+CBC/D/Plt, Urinalysis, Complete, Microscopic Ex ... - Urinalysis glucose, urine, semiquantitative Negative (Negative) Lab Report: CMP14+LP+2AC+CBC/D/Plt, Urinalysis, Complete, Microscopic Ex ... - Genetics/fertility eGFR if 90 mL/min/1.73m2 ( >59) Lab Report: CMP14+LP+2AC+CBC/D/Plt, Urinalysis, Complete, Microscopic Ex ... - Serology hepatitis B virus core antibody, IgM, PT, serum, quantitative Negative (Negative) Lab Report: CBC With Differential/Platelet - Hematology basophil count, absolute 0.0 x10E3/uL 0.0-0.2 Lab Report: Vitamin D, 25-Hydroxy, Calcium, Ionized, Serum, PTH, Intact - Chemistry calcium, serum, ionized 5.6 mg/dL 4.5-5.6 Lab Report: TSH+Free T4, CBC With Differential/Platelet, Comp. Metabolic ... - Chemistry thyroxine, serum, free 1.38 ng/dL 0.82-1.77 Lab Report: Comp. Metabolic Panel (14), Lipid Panel, Hemoglobin A1c, Pro ... - Chemistry globulin, serum 2.9 1.5-4.5 Estimated Glomerular Filtration Rate (calc) 104 mL/min/1.73m2 >59 Lab Report: Vitamin D, 25-Hydroxy, Calcium, Ionized, Serum, PTH, Intact - Chemistry vitamin D 25-hydroxy, serum 22.6 ng/mL 30.0-100.0 Lab Report: CMP14+LP+2AC+CBC/D/Plt, Urinalysis, Complete, Microscopic Ex ... - Basic Occult Blood, urine Negative (Negative) Lab Report: CMP14+LP+2AC+CBC/D/Plt, Urinalysis, Complete, Microscopic Ex ... - Chemistry LDL/HDL ratio, serum 2.3 ratio units (0.0-3.6) Lab Report: CBC With Differential/Platelet - Hematology eosinophils as percent of blood leukocytes 0 % 0-5 Lab Report: Comp. Metabolic Panel (14), Lipid Panel, Hemoglobin A1c, Pro ... - Chemistry blood glucose, random 117 mg/dL 65-99 Lab Report: CMP14+LP+2AC+CBC/D/Plt, Urinalysis, Complete, Microscopic Ex ... - Urinalysis urobilinogen, urine, semiquantitative (dipstick) 0.2 (0.0-1.9) Lab Report: Comp. Metabolic Panel (14), Lipid Panel, Hemoglobin A1c, Pro ... - Chemistry prostate specific antigen 2.3 ng/mL 0.0-4.0 Lab Report: CBC With Differential/Platelet - Hematology monocyte count, blood, automated 0.6 X10E3/UL 10*3/uL 0.1-0.9 platelet count 333 X10E3/UL 10*3/mm3 155-379 Lab Report: CMP14+LP+2AC+CBC/D/Plt, Urinalysis, Complete, Microscopic Ex ... - Urinalysis ketones, urine, by test strip Negative (Negative) Encounters Date Encounter Provider Code Facility 08:43:30 CDT Est Patient Exp Problem - 73849 Angi Davila MD CPT-06029 [facility] 10:35:31 CATHODE BUILDER Est Patient Detailed - 05944 Pernell Isaacs MD CPT-57809 [facility] 10:29:32 CDT Ofc Vst, Est Level III Devora De Luna NP CPT-43293 [facility] 11:52:20 CDT Est Patient Exp Problem - 81113 Sravanthi Hopper MD CPT-59685 [facility] 09:36:04 CDT Ofc Vst, Est Level IV Chrissy Irby MD CPT-02357 [facility] 11:27:08 CDT Ofc Vst, Est Level IV Chrissy Irby MD CPT-85423 [facility] 11:28:56 CATHODE BUILDER Ofc Vst, Est Level IV Chrissy Irby MD CPT-04684 [facility] 10:42:28 CATHODE BUILDER Ofc Vst, Est Level III [facility] CPT-32388 [facility] 12:37:23 CATHODE BUILDER Ofc Vst, Est Level II [facility] CPT-48037 [facility] 10:35:03 CDT Ofc Vst, New Level I [facility] CPT-28627 [facility] Procedures Code Procedure Name Date Entry Date Standard Description CPT-51618 Diagnostic evaluation with medical - 99408 10:56:38 CATHODE BUILDER
--- OUTSIDE RECORDS SUMMARY | 2019-01-09 08:22 | XMS REPORT ---
Author Author [facility] Address Unknown Phone Unavailable Care Team Providers Care [facility] Dentist Name Role Phone JOSE LUIS ROSARIO Unavailable Unavailable Payers Payer Name Policy Type Policy Number Effective Date Expiration Date Problems This patient has no known problems. Allergies, Adverse Reactions, Alerts Allergy Name Allergy Type Status Severity Reaction(s) Onset Date Inactive Date Treating Clinician Comments No Known Allergies DA Active U 2018-12-10 00:00:00 No Known Allergies DA Active U 2018-07-13 00:00:00 Medications This patient has no known medications. Results Test Description Test Time Test Comments Text Results Atomic Results Result Comments [address] (KUB) 2019-01-03 15:01:00 [place] [address] Patient Name: MARICEL ZAIDI MR #: [id number] : 1950 Age/Sex: 68/M Req #: [id number] Adm Physician: Ordered by: JOSE LUIS ROSARIO MD Report #: [id number] Location: OR Room/Bed: Procedure: [id number] DX/ABDOMEN-1VIEW (KUB) Exam Date: 01/03/19 Exam Time: 1240 REPORT STATUS: Signed Exam: KUB - 2 views Clinical History: Renal stone. Comparison: CT Abdomen/Pelvis without contrast 11/16/2018. Findings: Multiple right-sided renal calcifications, measuring up to 8 mm in the lower pole. Bowel gas partially obscures visualization of the left kidney. A 3 mm calcification projects over the left upper pole kidney, corresponding to the stone noted on prior CT. No evidence of ureteral stone. Nonobstructive bowel gas pattern. No acute osseous abnormality. Atherosclerotic vascular calcifications. Impression: Bilateral renal stones, measuring up to 8 mm in the right lower pole. Signed by: Dr. Naima Smith MD on 01/03/2019 3:05 PM Dictated By: NAIMA SMITH MD 1505 Transcribed By: DEXTER on 01/03/19 1505 COPY TO: JOSE LUIS ROSARIO MD CHEST 2 VIEWS 2019-01-03 13:19:00 [place] [address] Patient Name: MARICEL ZAIDI MR #: [id number] : 1950 Age/Sex: 68/M Req #: [id number] Adm Physician: Ordered by: JOSE LUIS ROSARIO MD Report #: [id number] Location: OR Room/Bed: Procedure: [id number] DX/CHEST 2 VIEWS Exam Date: 01/03/19 Exam Time: 1240 REPORT STATUS: Signed EXAMINATION: CHEST 2 VIEWS INDICATION: Pre-admit. COMPARISON: CT ABdomen/Pelvis 11/16/2018. FINDINGS: TUBES and LINES: None. LUNGS: Low lung volumes which decreases sensitivity and specificity for pathology. No evidence of pneumonia or pulmonary edema. Right middle lobe pulmonary nodule noted on CT from 11/16/2018 is not well-visualized by radiograph. PLEURA: No pleural effusion or pneumothorax. HEART AND MEDIASTINUM: The cardiomediastinal silhouette is unremarkable. BONES AND SOFT TISSUES: No acute osseous abnormality. UPPER ABDOMEN: No free air under the diaphragm. IMPRESSION: No acute radiographic abnormality. Signed by: Dr. Naima Smith MD on 01/03/2019 1:22 PM Dictated By: NAIMA SMITH MD 132 Transcribed By: DEXTER on 01/03/19 132 COPY TO: JOSE LUIS ROSARIO MD - XR FLUORO NDL 2018-12-11 09:34:00 Patient Name: MARICEL ZAIDI Unit No: [id number] EXAMS: CPT CODE: [id number] XR FLUORO NDL 17928 Fluoroscopically guided injection of the right shoulder with steroid and lidocaine COMPARISON: No prior exams available. FINDINGS: After informed consent was obtained a needle was placed in the right shoulder with fluoroscopic guidance. Its position was confirmed by injecting Isovue 300 and obtaining an AP radiograph. Subsequently 2 mL of Kenalog 40 mg per cc and 2 mL of 1 percent lidocaine was injected. No immediate complications were encountered. 5 seconds of fluoroscopy time was utilized. IMPRESSION: Technically successful steroid injection of the right shoulder at 0934 Reported and signed by: Mason Thomas M.D. CC: Parvez Ellington MD Technologist: Mayda Boyce RTAnastacio(R); HADLEY BAILEY RT(R) Transcribed D/ (0934) GwendolynJ [facility] NAME: MARICEL ZAIDI [address] [facility] [address] PHYS: Parvez Ureña MD : 1950 AGE: 68 SEX: M [place], [place] [address] LOC: Y.RAD PHONE #: [phone] EXAM DATE: 12/10/2018 STATUS: DEP CLI FAX #: [phone] RAD #: D/C DT PAGE 1 Signed Report Patient Name: MARICEL ZAIDI Unit No: [id number] EXAMS: CPT CODE: [id number] XR FLUORO NDL 52453 <Continued> Orig Print D/T: S: 12/11/2018 (0937) [facility] NAME: MARICEL ZAIDI [address] [facility] PHYS: Parvez Ureña MD : 1950 AGE: 68 SEX: M [place], [place] [address] LOC: Y.RAD PHONE #: [phone] EXAM DATE: 12/10/2018 STATUS: DEP CLI FAX #: [phone] RAD #: D/C DT PAGE [address] ABDOMEN/PELVIS WO 2018-11-16 10:32:00 [place] [address] Patient Name: MARICEL ZAIDI MR #: [id number] : 1950 Age/Sex: 68/M Req #: [id number] Adm Physician: Ordered by: JOSE LUIS ROSARIO MD Report #: [id number] Location: CT Room/Bed: Procedure: [id number] CT/CT ABDOMEN/PELVIS WO Exam Date: 11/16/18 Exam Time: 0950 REPORT STATUS: Signed EXAMINATION: CT of the abdomen and pelvis without contrast. TECHNIQUE: Spiral CT images of the abdomen and pelvis were performed from the lung bases to the lesser trochanters. No intravenous contrast was given per renal stone protocol. Coronal and sagittal reformatted images were obtained. RADIATION DOSE: DLP: 713.1 mGy-cm Dose modulation, iterative reconstruction, and/or weight based adjustment of the mA/kV was utilized to reduce the radiation dose to as low as reasonably achievable. COMPARISON: CT abdomen/pelvis 01/31/2017. CLINICAL HISTORY: Renal calculus. DISCUSSION: ABSENCE OF INTRAVENOUS CONTRAST DECREASES SENSITIVITY FOR DETECTION OF FOCAL LESIONS AND VASCULAR PATHOLOGY. LOWER THORAX: A 4 mm right middle lobe subpleural nodule is unchanged from CT on 01/31/2017. Patchy dependent atelectasis. Mild subpleural reticular opacities in the lower lobes could represent mild interstitial changes. HEPATOBILIARY:No focal hepatic lesions. Similar appearance of multiple hepatic cysts. No biliary ductal dilation. The gallbladder is unremarkable. SPLEEN: No splenomegaly. PANCREAS: No evidence of focal masses or ductal dilatation. ADRENALS: No adrenal nodules. KIDNEYS/URE TERS: Again noted is bilateral renal rotation, left greater than right. There is been interval increase in size of bilateral nonobstructing renal stones. For example, a 4 mm left upper pole stone, previously 2 mm. Interval development of an 8 mm right lower pole renal stone. No evidence of ureteral stone. PELVIC ORGANS/BLADDER: The bladder is partially decompressed. PERITONEUM/RETROPERITONEUM: No free air or fluid. LYMPH NODES: No evidence of lymphadenopathy. VESSELS: There are moderate atherosclerotic calcifications in the aorta and branch vessels. GI TRACT: No distention or wall thickening. Diverticulosis without evidence of diverticulitis. The appendix is not well-visualized, however there are no secondary signs of appendicitis. BONES AND SOFT TISSUES: No bony destructive lesions. Mild degenerative changes of the lower lumbar spine. IMPRESSION: Enlarging bilateral nonobstructing renal stones. New 8 mm right lower pole renal stone. No evidence of hydronephrosis or ureteral stone. Signed by: Dr. Naima Smith MD on 11/16/2018 10:51 AM Dictated By: NAIMA SMITH MD 1051 Transcribed By: DEXTER on 11/16/18 1051 COPY TO: JOSE LUIS ROSARIO MD
[2019-01-09 13:40] VITALS: BP 123/83
--- NOTE | 2019-02-17 20:01 | Operative Report ---
DATE OF PROCEDURE: 01/09/2019 SURGEON: Allan Siddiqi MD PREOPERATIVE DIAGNOSES: 1. Right nephrolithiasis. 2. Microhematuria. POSTOPERATIVE DIAGNOSES: 1. Right nephrolithiasis. 2. Microhematuria. OPERATIONS PERFORMED: 1. Right-sided extracorporeal shockwave lithotripsy (separate procedure was performed for the right 8 mm stone). 2. Cystourethroscopy with bilateral ureteral catheterization and retrograde ureteropyelography (separate procedure was performed for the microhematuria). 3. Interpretation of retrograde ureteropyelography. ANESTHESIA: General. COMPLICATIONS: None. CLINICAL SUMMARY: Darian Nuñez is a 68-year-old man with bilateral nephrolithiasis and microhematuria. He is brought for the above the procedures. He is aware of the risks of bleeding, infection, injury to adjacent structures, need for additional procedures and elected to proceed. OPERATIVE PROCEDURE IN DETAIL: Informed consent was verified. Darian Nuñez was properly identified, taken to the operating room, placed on the lithotripsy table in supine position. Anesthesia was uneventfully begun. The patient's 8 mm lower right kidney was localized at that time with fluoroscopy. A total of 3000 shocks were delivered with fragmentation noted. The patient was then carefully and gently repositioned in the dorsal lithotomy position with all pressure points well padded. His genitalia were prepared and draped in usual sterile fashion. Cystoscope sheath with the visual obturator in place was atraumatically inserted into the patient's urethra. It was guided down the unremarkable distal urethra mild narrowing at the bulbar region through the normal sphincteric region through the prostate bed, which was significant for trilobar prostatic hypertrophy was noted with kissing lateral lobes with mild hyperemia of the mucosa with median bar into the patient's bladder and it was drained mucosal calcification medial to both ureteral orifices. There were some mild trabeculations noted. There were no tumors, no stones, no diverticula. Normally positioned and configured ureteral orifices were identified. Next, the ureteral catheter was used to cannulate each ureter and retrograde ureteropyelogram was performed. Interpretation of retrograde ureteropyelography: Contrast was instilled in retrograde fashion bilaterally. There were no tumors and no suspicious lesions calcification seen. These stones were not treated. There was bilateral both kidneys. Unobstructed drainage was observed fluoroscopically with a filling defect in the right lower pole consistent with the lithotripsy that we performed. The patient's bladder was then drained. The cystoscope was withdrawn and the patient was then uneventfully reversed from anesthesia and taken to the recovery room in stable condition. There were no complications to the procedure. He tolerated the procedure well. Expressive postoperative instructions were given. We will follow the patient up operating room for left versus right ESWL. MD KEN Lujan/VERNON /[id number]
== END | disposition home or self-care (01) ==
LOC: OR 08:16
PROVIDERS: ATTEND Urology
DX: N20.0 Calculus of kidney (principal); N40.0 Benign prostatic hyperplasia without lower urinary tract symptoms; N32.89 Other specified disorders of bladder; I10 Essential (primary) hypertension; Z01.810 Encounter for preprocedural cardiovascular examination; Z01.812 Encounter for preprocedural laboratory examination; Z01.818 Encounter for other preprocedural examination; Z87.891 Personal history of nicotine dependence
CPT/HCPCS: 36415; 50590; 71046; 74018; 80048; 83970; 84550; 85025; 93005; C1758; J0696; J1100; J2001; J2250; J2405; J2704; J3490; Q9967; J3010

== ENCOUNTER → 2019-02-19 | Day surgery (SDC) | payer MEDICARE, BC ==
[2019-02-12 09:52] LABS: BASOPHILS # (AUTO) 0.1 (0.0-0.1); BASOPHILS % 1.1 % (0.0-1.0); EOSINOPHILS # (AUTO) 0.1 (0.0-0.4); EOSINOPHILS % 1.6 % (0.0-6.0); HEMATOCRIT 44.6 % (38.2-49.6); HEMOGLOBIN 14.9 g/dL (14.0-18.0); LYMPHOCYTES # (AUTO) 1.3 (1.0-3.2); LYMPHOCYTES % 18.2 % (18.0-39.1); MEAN CORPUSCULAR HEMOGLOBIN 29.2 pg (28-32); MEAN CORPUSCULAR HGB CONC 33.4 g/dL (31-35); MEAN CORPUSCULAR VOLUME 87.3 fL (81-99); MONOCYTES # (AUTO) 0.8 (0.2-0.8); MONOCYTES % 10.9 % (4.4-11.3); NEUTROPHILS % 67.4 % (38.7-80.0); PLATELET COUNT 300 x10e3/uL (140-360); RED BLOOD COUNT 5.11 x10e6/uL (4.3-5.7); RED CELL DISTRIBUTION WIDTH 15.1 % (11.7-14.4)
[~2019-02-19] MED LIST changes: -B&O 60MG R/S 60 MG SUPP PR ONE; -GLYCOPYRROLATE INJ 1MG/ 5 ML SYR ONE; -IOPAMIDOL 610MG/1ML 300 MG/ML VIAL IV ONE; -MIDAZOLAM HCL 2 MG/2 ML VIAL ONE
--- OUTSIDE RECORDS SUMMARY | 2019-02-19 06:10 | XMS REPORT | Clinical Summary ---
Author Author [facility] Organization [facility] Address Unknown Phone Unavailable Care Team Providers Care Professional Employer Consultant Name Role Phone Aspen Porras MD PCP Allergies Comments Active Allergy Reactions Severity Noted Date No Known Drug Allergies 06/26/2017 Medications End Date Status Medication Sig Dispensed Refills Start Date Active lisinopril 1 (PRINIVIL,ZESTRIL) 40 mg 7 tablet Active ibuprofen (ADVIL,MOTRIN) Take 600 mg 0 200 MG tablet by mouth 2 (two) times a day as needed for mild pain. 02/13/2020 Active diclofenac (VOLTAREN) 1 % Apply 3 Tube 5 gel topically 4 9 (four) times a day. 11/19/2018 Discontinued amLODIPine (NORVASC) 5 mg TK 1 T PO QD 5 tablet FOR 7 HYPERTENSION 03/28/2018 Discontinued hydroCHLOROthiazide TK ONE T PO 2 (HYDRODIURIL) 12.5 MG QD 7 tablet 03/28/2018 Discontinued traZODone (DESYREL) 100 TK 1 T PO 2 MG tablet QHS 7 09/18/2018 Discontinued ibuprofen (ADVIL,MOTRIN) One tablet 4 [...] Overview: Added automatically from request for surgery [id number] Degenerative lumbar spinal stenosis 06/26/2017 Multiple joint pain 06/20/2017 Chronic bilateral low back pain 06/20/2017 Hypercalcemia 11/05/2012 Depression Obesity Visual impairment Encounters Care Team Description Date Type Specialty Zoraida Díaz DO 02/18/2019 Orders Only Rheumatology Zoraida Díaz DO Abnormal x-ray (Primary Dx) 02/18/2019 Orders Only Rheumatology Zoraida Díaz DO Polyarthralgia 02/13/2019 Hospital Radiology Encounter Zoraida Díaz DO Polyarthralgia (Primary Dx); Osteoarthritis of both shoulders, unspecified osteoarthritis type; DDD (degenerative disc disease), lumbar 02/13/2019 Office Visit Rheumatology aFwn Martinez MD Lumbar radiculopathy (Primary Dx); Right [...] lumbar laminectomy 07/05/2018 Office Visit Orthopedic [facility], Provider Not InMD Tendonitis (Primary Dx) 06/19/2018 Transcribe Radiology Orders [...] leg pain 04/23/2018 Hospital Radiology Encounter Oli Cameorn MD Lumbar stenosis with neurogenic claudication (Primary [...] joint arthritis 03/07/2018 Office Visit Orthopedic Surgery after 02/18/2018 Family History Medical History Relation Name Comments Cancer Father Osteoarthritis Father Hypertension Mother Relation Name Status Comments Father Mother Social History Date Tobacco Use Types Packs/Day Years Used Former Smoker Smokeless Tobacco: Former User Alcohol Use Drinks/Week oz/Week Comments Yes 1 Shots of 0.6 rarely liquor Sex Assigned at Date Recorded Not on file Industry Job Start Date Occupation Not on file Not on file Not on file Travel End Travel History Travel Start No recent travel history available. Last Filed Vital Signs Time Taken Vital Sign Reading 02/13/2019 1:58 PM CDT Blood Pressure 154/101 02/13/2019 1:58 PM CDT Pulse 86 02/13/2019 1:58 PM CDT Temperature 37 C (98.6 F) 12/03/2018 11:17 AM CDT Respiratory Rate 18 02/13/2019 1:58 PM CDT Oxygen Saturation 93% - Inhaled Oxygen - Concentration 02/13/2019 1:58 PM CDT Weight 88.2 kg (194 lb 8 oz) 02/13/2019 1:58 PM CDT Height 153.7 cm (5' 0.5") 02/13/2019 1:58 PM CDT Body Mass Index 37.36 Plan of Treatment Care Team Description Date Type Specialty GurvindermaryZoraida, [address] [facility] [address] [place] [address] 04/03/2019 Office Visit Rheumatology aFwn Martinez MD [address] [facility] [address] [facility] [place] [address] 04/24/2019 Office Visit Physical Medicine and Rehabilitation Health Maintenance Due Date Last Done Comments COLONOSCOPY SCREENING 2001 SHINGLES VACCINES (#1) 2001 65+ PNEUMOCOCCAL VACCINE 2016 (1 of 2 - PCV13) INFLUENZA VACCINE 03/07/2019 Implants Device Identifier Shelf Expiration Date Model / Serial / Lot Implanted Type Area Manufactur er [id number] / / Matrix [employer] Floseal 5ml W/ Humn F2 Surgical N/A: N/A [employer]AL[employer] - [id number] Implants; HEALTHCARE Implanted: Qty: 1 on 07/17/2017 by [employer]; GABE Oli Cameron MD Extenders; Surgical Wires Procedures Comments Procedure Name Priority Date/Time Associated Diagnosis XR HANDS 3 VW BILATERAL Routine 02/13/2019 Polyarthralgia 3:52 PM CDT COMPREHENSIVE METABOLIC Routine 02/13/2019 Polyarthralgia PANEL 3:18 PM CDT CBC WITH PLATELET AND Routine 02/13/2019 Polyarthralgia DIFFERENTIAL 3:18 PM CDT URIC ACID LEVEL Routine 02/13/2019 Polyarthralgia 3:18 PM CDT CYCLIC CITRULLINATED Routine 02/13/2019 Polyarthralgia PEPTIDE AB, IGG 3:14 PM CDT RHEUMATOID FACTOR Routine 02/13/2019 Polyarthralgia 3:14 PM CDT C-REACTIVE PROTEIN Routine 02/13/2019 Polyarthralgia 3:14 PM CDT SEDIMENTATION RATE Routine 02/13/2019 Polyarthralgia 3:14 PM CDT FL FLUOROSCOPY GUIDED Routine 12/03/2018 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 Bilateral hip pain FL FLUOROSCOPY GUIDED Routine 11/29/2018 Primary osteoarthritis of INJECTION 11:00 AM CDT both hips Bilateral hip pain XR HIP 2-3 VIEWS LEFT Routine 11/19/2018 Left hip pain 10:[address] MD SERVICE REQUIRED Routine 10/22/2018 Wheelchair dependence FOR PMD 8:45 AM CDT Lumbar radiculopathy Lumbosacral radiculopathy due to degenerative joint disease of spine IR EPIDURAL STEROID INJ Routine 10/02/2018 DDD (degenerative disc TRANSFORAM LUMBAR LEFT 10:47 AM [employer] disease), lumbar (NERVE ROOT BLOCK) Status post lumbar laminectomy IR EPIDURAL STEROID INJ Routine 07/09/2018 Degenerative lumbar TRANSFORAM LUMBAR LEFT 11:03 AM [employer] spinal stenosis (NERVE ROOT BLOCK) Status post lumbar laminectomy MRI UPPER EXTREMITY JOINT Routine 06/26/2018 Tendonitis WO CONTRAST RIGHT 10:59 AM [employer] MRI SHOULDER WO CONTRAST Routine 06/26/2018 Tendonitis RIGHT 10:59 AM [employer] XR SHOULDER 2+ VW RIGHT Routine 05/09/2018 Acute pain of right 10:[address] ARTHROCENTESIS Routine 05/09/2018 Acute pain of right [...] LATERAL W AP PELVIS 3:08 PM CDT after 02/18/2018 Results * XR Hands 3 Vw Bilateral (02/13/2019 3:52 PM CDT) Specimen Narrative Performed At EXAMINATION: XR HANDS 3 VW BILATERAL [facility] INDICATION: M25.50 Pain in unspecified joint, joint pain COMPARISON: None IMPRESSION: 3 views of each hand were obtained. Osseous mineralization is within normal limits. No visible erosion. No evidence of periostitis. No evidence of subluxation. There is a well-circumscribed lytic lesion in the distal phalanx of the left ring finger measuring up to 5 x 5 mm. Differential considerations would include an inclusion cyst or less likely a glomus tumor. Findings can be further assessed with a contrast-enhanced MRI of the finger. Mild thumb CMC and STT osteoarthrosis bilaterally. Early osteoarthrosis of the DIP joints of the fingers bilaterally. [id number] Procedure Note Interface, Radiology Results - 02/13/2019 4:01 PM CDT EXAMINATION: XR HANDS 3 VW BILATERAL INDICATION: M25.50 Pain in unspecified joint, joint pain COMPARISON: None IMPRESSION: 3 views of each hand were obtained. Osseous mineralization is within normal limits. No visible erosion. No evidence of periostitis. No evidence of subluxation. There is a well-circumscribed lytic lesion in the distal phalanx of the left ring finger measuring up to 5 x 5 mm. Differential considerations would include an inclusion cyst or less likely a glomus tumor. Findings can be further assessed with a contrast-enhanced MRI of the finger. Mild thumb CMC and STT osteoarthrosis bilaterally. Early osteoarthrosis of the DIP joints of the fingers bilaterally. [id number] Performing Organization Address City/State/Zipcode Phone Number [facility] [address] [place] [address] * CBC with platelet and differential (02/13/2019 3:18 PM CDT) WBC 8.1 3.4 - 10.8 x10E3/uL [facility] RBC 5.21 4.14 - 5.80 x10E6/uL [facility] HGB 15.1 13.0 - 17.7 g/dL [facility] HCT 45.6 37.5 - 51.0 % [facility] MCV 88 79 - 97 fL [facility] MCH 29.0 26.6 - 33.0 pg [facility] MCHC 33.1 31.5 - 35.7 g/dL [facility] RDW 15.3 12.3 - 15.4 % [facility] Platelet count 313 150 - 450 x10E3/uL [facility] Neutrophils 65 Not Estab. % [facility] Lymphocytes 22 Not Estab. % [facility] Monocytes 10 Not Estab. % [facility] Eosinophils 2 Not Estab. % [facility] Basophils 1 Not Estab. % [facility] Neutrophils, 5.3 1.4 - 7.0 x10E3/uL [facility] absolute Lymphocytes, 1.8 0.7 - 3.1 x10E3/uL [facility] absolute Monocytes, 0.8 0.1 - 0.9 x10E3/uL [facility] absolute Eosinophils, 0.1 0.0 - 0.4 x10E3/uL [facility] absolute Basophils, 0.0 0.0 - 0.2 x10E3/uL [facility] absolute Immature 0 Not Estab. % [facility] granulocytes Immature grans 0.0 0.0 - 0.1 x10E3/uL [facility] (abs) Specimen Blood Narrative Performed At Performed at:[address] [place], [place] [id number] [employer] Supervisor: Charan Fung MD, Phone:[phone] Performing Organization Address [facility] Phone Number [facility] * Uric acid level (02/13/2019 3:18 PM CDT) Pathologist [facility] [place] Uric acid 7.0Comment: 3.7 - 8.6 mg/dL [facility] Therapeutic target for gout patients: <6.0 Specimen Blood Narrative Performed At Performed at:[address] [place], [place] [id number] [employer] Supervisor: Charan Fung MD, Phone:[phone] Performing Organization Address [facility] Phone Number [facility] * Comprehensive metabolic panel (02/13/2019 3:18 PM CDT) Pathologist [facility] [place] Glucose 94 65 - 99 mg/dL [facility] BUN, whole 15 8 - 27 mg/dL [facility] blood Creatinine 0.69 (L) 0.76 - 1.27 mg/dL [facility] EGFR Non-Afr. 98 >59 mL/min/1.73 [facility] Guatem[place] EGFR 114 >59 mL/min/1.73 [facility] [place] BUN/creatinine 22 10 - 24 [facility] ratio Sodium 141 134 - 144 mmol/L [facility] Potassium 4.7 3.5 - 5.2 mmol/L [facility] Chloride 106 96 - 106 mmol/L [facility] CO2 19 (L) 20 - 29 mmol/L [facility] Calcium 10.4 (H) 8.6 - 10.2 mg/dL [facility] Protein 7.7 6.0 - 8.5 g/dL [facility] Albumin, S 4.6 3.6 - 4.8 g/dL [facility] Globulin, total 3.1 1.5 - 4.5 g/dL [facility] Albumin/globuli 1.5 1.2 - 2.2 [facility] n ratio Total bilirubin 0.5 0.0 - 1.2 mg/dL [facility] Alkaline 113 39 - 117 IU/L [facility] phosphatase AST 15 0 - 40 IU/L [facility] ALT 17 0 - 44 IU/L [facility] Specimen Blood Narrative Performed At Performed at: [id number] [place] Supervisor: Charan Fung MD, Phone:[phone] Performing Organization Address [facility] Phone Number [facility] * Cyclic citrullinated peptide antibody, IgG (02/13/2019 3:14 PM CDT) Cyclic 7 0 - 19 units [facility] citrullin Comment: peptide Ab Negative <20 Weak yneroyux86 - 39 Moderate - 59 Strong positive>59 Specimen Blood Narrative Performed At Performed at: [id number] [place] Supervisor: Néstor Weber MD, Phone:[phone] Performing Organization Address [facility] Phone Number [facility] * Sedimentation rate (02/13/2019 3:14 PM CDT) Sedimentation 27 0 - 30 mm/hr [facility] rate Specimen Blood Narrative Performed At [facility]formed at: [id number] [place] Supervisor: Charan Fung MD, Phone:[phone] Performing Organization Address [facility] Phone Number [facility] * Rheumatoid factor (02/13/2019 3:14 PM CDT) Rheumatoid <10.0 0.0 - 13.9 IU/mL [facility] arthritis latex turbid Specimen Blood Narrative Performed At Performed at:[address] [place] [address] [id number] [place] Supervisor: Charan Fung MD, Phone:[phone] Performing Organization Address [facility] Phone Number [facility] * C-reactive protein (02/13/2019 3:14 PM CDT) CRP 2Comment: 0 - 10 mg/L [facility] Please note reference interval change Specimen Blood Narrative Performed At Performed at:[address] [place], [place] [address]CO[id number] [place] Supervisor: Charan Fung MD, Phone:[phone] Performing Organization Address [facility] Phone Number [facility] * FL Fluoroscopy Guided Injection (12/03/2018 12:00 PM CDT) Only the most recent of 4 results within the time period is included. Specimen Narrative Performed At EXAMINATION:FL FLUOROSCOPY GUIDED INJECTION [facility] CLINICAL HISTORY:M16.0 Bilateral primary osteoarthritis of [...] the joint as per ordering physician's request. [id number] Procedure Note Hm Interface, Radiology Results Incoming [...] the joint as per ordering physician's request. [id number] Performing Organization Address [facility] Phone Number [facility] [address] [place] [address] * XR Hip 2-3 View Left (11/19/2018 10:33 AM CDT) Specimen Narrative Performed At [facility] AP and lateral x-rays of the left hip demonstrate mild medial joint space narrowing.No periarticular osteophytes are noted.No soft tissue calcifications are seen.No lytic or blastic lesions within the pelvis are noted. Performing Organization Address [facility] Phone Number [facility] [address] [place] [address] * Mobility Exam (10/22/2018 8:45 AM CDT) [...] patient to have sufficient trunk strength, hand fish and wildlife warden, and upper extremity function, balance to sit [...] Left (Nerve Root Block) (10/02/2018 10:47 AM [employer]) Only the most recent of 3 results [...] guided left L4-5 transforaminal epidural steroid injection.. [facility]-[id number] Procedure Note Interface, Radiology Results Incoming - 10/02/2018 12:13 PM [employer] EXAMINATION: IR EPIDURAL STEROID INJ TRANSFORAM LUMBAR [...] guided left L4-5 transforaminal epidural steroid injection.. 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 [facility]-[id number] Performing Organization Address City/State/Zipcode Phone Number [facility] [address] [place] [address] * MRI Shoulder Wo Contrast Right (06/26/2018 10:59 AM [employer]) Specimen Narrative Performed At EXAMINATION:MRI SHOULDER WO CONTRAST RIGHT [facility] CLINICAL HISTORY:M77.9 Enthesopathyunspecified, TENDONITIS TECHNIQUE:Multiplanar multisequence [...] without tear. Moderate acromioclavicular joint degenerative changes. [facility]-[id number] Procedure Note Interface, Radiology Results Incoming - 06/26/2018 11:09 AM [employer] EXAMINATION: MRI SHOULDER WO CONTRAST RIGHT CLINICAL [...] without tear. Moderate acromioclavicular joint degenerative changes. [facility]-[id number] Performing Organization Address [facility] Phone Number [facility] [address] [place] [address] * XR Shoulder 2+ Vw Right (05/09/2018 10:53 AM CDT) Specimen Narrative Performed At [facility] Osteoporosis, significant diffuse degenerative changes of the glenohumeral joint with cystic changes of the humeral head. Performing Organization Address [facility] Phone Number [employer] [address] [place] [address] * Large Joint Arthrocentesis (05/09/2018 10:20 AM [...] [facility] Normal bony architecture Performing Organization Address [facility] Phone Number [employer] [address] [place] [address] * MRI Lumbar Spine W Wo Contrast (04/02/2018 11:34 AM CDT) Specimen Narrative Performed At [facility] EXAMINATION: MRI LUMBAR SPINE W WO CONTRAST CLINICAL HISTORY: M48.062 Spinal stenosislumbar region with neurogenic claudication, L S-spine stenosis, 12 2016 Central L4-5 decompressive laminectomyplease compare to preoperative [...] exiting left L4 nerve. Correlate for significance. [id number] Procedure Note Hm Interface, Radiology Results 04/02/2018 12:03 PM CDT EXAMINATION: MRI LUMBAR SPINE W WO CONTRAST CLINICAL HISTORY: M48.062 Spinal stenosis lumbar region with neurogenic claudication, L S-spine stenosis, 07 17 2017 Central L4-5 decompressive laminectomy please compare to [...] exiting left L4 nerve. Correlate for significance. [id number] Performing Organization Address [facility]/Zipcode Phone Number [facility] [address] [phone] * Estimated GFR (04/02/2018 11:10 AM CDT) [facility] GFR Non Af Amer >90 mL/min/1.73 m2 [facility] DEPARTMENT OF PATHOLOGY AND GENOMIC MEDICINE GFR Af Amer >90 mL/min/1.73 m2 [facility] DEPARTMENT Comment: OF PATHOLOGY Chronic kidney [...] and Americans. Specimen Blood Performing Organization Address City/[facility]/Zipcode Phone Number [facility] DEPARTMENT OF [address] [place] [phone] PATHOLOGY AND GENOMIC MEDICINE * POC creatinine (04/02/2018 11:10 AM CDT) [facility] POC creatinine 0.6 (L) 0.7 - 1.2 mg/dl [facility] DEPARTMENT Comment: OF PATHOLOGY Meter ID: [id number] AND GENOMIC Station Superintendent: Jenny Duckworth MEDICINE Specimen Blood Performing Organization Address City/[facility]/Zipcode Phone Number [facility] DEPARTMENT OF [address] [place] [address] PATHOLOGY AND GENOMIC MEDICINE * XR Hips Bilateral Ap Lateral W Ap Pelvis (03/07/2018 3:08 PM CDT) Specimen Narrative Performed At [facility] Mild degenerative changes of the hip joints consistent with his age Performing Organization Address City/State/Zipcode Phone Number [facility] [address] [place] [address] after 02/18/2018 Insurance Type Payer Benefit Subscriber ID Effective Phone Address Plan / Dates Group Medicare MEDICARE MEDICARE xxxxxxxxxxx 2016-P MARR[place], PART A AND resent [place] B Indemnity BCBS BCBS xxxxxxxxxxxx 2016-P PAR/TRAD resent PLAN Advance Directives Patient has advance care planning documents on file. For more information, teetee don contact: Matthew Jason [address] [place] [address]
--- OUTSIDE RECORDS SUMMARY | 2019-02-19 06:13 | XMS REPORT | Continuity of Care Document ---
Author Author [employer] Organization [employer] Address Unknown Phone Unavailable Care Team Providers Care [employer]el[employer] Fiber Sorter Name Role Phone Two Tap Information My Pick Box Unavailable Unavailable Problems Problem Status Onset Date Classification Date Reported Comments Source Obstructive sleep apnea of adult Active 01/16/2019 Diagnosis 02/13/2019 [facility] Obesity Active 09/04/2017 Diagnosis 02/13/2019 [facility] DEPRESSIVE DISORDER, MAJOR, RECURRENT EPISODE, MILD Active 09/04/2017 Diagnosis 02/13/2019 [facility] ANXIETY DISORDER, UNSPECIFIED Active 09/04/2017 Diagnosis 02/13/2019 [facility] DEPRESSIVE DISORDER, MAJOR, SINGLE EPISODE, MODERATE Active 05/22/2013 Diagnosis 02/13/2019 [facility] ANXIETY DISORDER NOS Active 05/22/2013 Diagnosis 02/13/2019 [facility] VITAMIN D DEFICIENCY Active 05/13/2013 Diagnosis 02/13/2019 [facility] NAUSEA Active 05/13/2013 Diagnosis 02/13/2019 [facility] STRESS Active 05/13/2013 Diagnosis 02/13/2019 [facility] LOSS OF APPETITE Active 05/13/2013 Diagnosis 02/13/2019 [facility] WEIGHT LOSS Active 05/13/2013 Diagnosis 02/13/2019 [facility] PROSTATE SPECIFIC ANTIGEN, ELEVATED Active 11/05/2012 Diagnosis 02/13/2019 [facility] HYPERCALCEMIA Active 11/05/2012 Diagnosis 02/13/2019 [facility] HYPERLIPIDEMIA Active 09/17/2012 Diagnosis 02/13/2019 [facility] PREDIABETES Active 09/17/2012 Diagnosis 02/13/2019 [facility] PERSONAL HISTORY OTHER DISORDER URINARY SYSTEM Active 09/17/2012 Diagnosis 02/13/2019 [facility] DEGENERATION INTERVERTEBRAL DISC SITE UNSPEC Active 08/09/2011 Diagnosis 02/13/2019 [facility] BACK PAIN Inactive 07/19/2011 Problem 02/13/2019 [facility] HYPERTENSION Active 04/19/2011 Diagnosis 02/13/2019 [facility] TOBACCO ABUSE Active 04/19/2011 Diagnosis 02/13/2019 [facility] HERNIA, HX OF Inactive 04/19/2011 Problem 02/13/2019 [facility] RENAL CALCULUS Inactive 04/19/2011 Problem 02/13/2019 [facility] Medications Medication Details Route Status Patient Instructions Ordering Provider Order Date Source MIRTAZAPINE One tablet nightly. Active One tablet nightly. 12/12/2018 [facility] IBUPROFEN CREA Apply to area BID for 14 days. Active Apply to area BID for 14 days. 2017 [facility] QUETIAPINE FUMARATE Half to one tablet nightly. Active Half to one tablet nightly. 09/04/2017 [facility] TRAZODONE HCL Half to one tablet nightly. Active Half to one tablet nightly. 09/04/2017 [facility] QUETIAPINE FUMARATE Half a tablet nightly. Active Half a tablet nightly. 09/04/2017 [facility] CELEXA 20 MG ORAL TABLET 1 By Mouth Every a.m. Active 1 By Mouth Every a.m. 05/22/2013 [facility] CELEXA 20 MG ORAL TABLET 1 By Mouth Every a.m. No Longer Active 1 By Mouth Every a.m. 05/22/2013 [facility] PROMETHAZINE HCL 1 By Mouth Three Times a Day As Needed nausea Active 1 By Mouth Three Times a Day As Needed nausea 05/13/2013 [facility] ASPIRIN 1 by mouth every day, heart protection Active 1 by mouth every day, heart protection 11/05/2012 [facility] LISINOPRIL 1 By Mouth Every Day, blood pressure Active 1 By Mouth Every Day, blood pressure 09/17/2012 [facility] RAPAFLO 8 MG ORAL CAPSULE 1 By Mouth Every Day, prostate Active 1 By Mouth Every Day, prostate 09/17/2012 [facility] ETODOLAC 1 By Mouth Every Day, pain/osteoarthritis No Longer Active 1 By Mouth Every Day, pain/osteoarthritis 09/17/2012 [facility] AMLODIPINE BESYLATE 1 tab by mouth daily, blood pressure No Longer Active 1 tab by mouth daily, blood pressure 09/17/2012 [facility] LISINOPRIL-HYDROCHLOROTHIAZIDE 1 tab By Mouth qam Active 1 tab By Mouth qam 08/09/2011 [facility] LISINOPRIL one half tablet by mouth daily Active one half tablet by mouth daily 07/19/2011 [facility] TERAZOSIN HCL 1 tab By Mouth qhs Active 1 tab By Mouth qhs 07/19/2011 [facility] GABAPENTIN 1 tab By Mouth qhs No Longer Active 1 tab By Mouth qhs 07/19/2011 [facility] Allergies, Adverse Reactions, Alerts No Known Medication Allergies Immunizations No Data Provided for This Section Results Order Name Results Value Reference Range Date Interpretation Comments Source List of providers caring for patient Eunice Andres MD, Devora De Luna MISSILE PAD MECHANIC, Bijal Bernal MA, Hyun Camarena MA, Bijal Orozco MA lab, Keo Gomez CTA, Pat Uribe RN 07/15/2014 [facility] mean corpuscular hemoglobin concentration, RBC 33.4 G/DL 31.5 - 35.7 05/13/2013 [facility] erythrocyte (RBC) count 5.19 X10E6/UL 4.14 - 5.80 05/13/2013 [facility] Absolute Neutrophils 7.0 X10E3/UL 1.4 - 7.0 05/13/2013 [facility] mean corpuscular volume, RBC 91 79 - 97 05/13/2013 [facility] monocytes as percent of blood leukocytes 7 4 - 12 05/13/2013 [facility] Eosinophil Absolute Count 0.0 X10E3/UL 0.0 - 0.4 05/13/2013 [facility] red blood cell distribution width 14.5 12.3 - 15.4 05/13/2013 [facility] leukocyte count, blood 8.5 X10E3/UL 3.4 - 10.8 05/13/2013 [facility] immature granulocytes, percentage of total cells, blood 0 0 - 2 05/13/2013 [facility] lymphocyte count, blood, automated 0.9 X10E3/UL 0.7 - 3.1 05/13/2013 [facility] hematocrit, blood 47.3 37.5 - 51.0 05/13/2013 [facility] neutrophils as percent of blood leukocytes 82 40 - 74 05/13/2013 [facility] basophils as percent of blood leukocytes 0 0 - 3 05/13/2013 [facility] mean corpuscular hemoglobin, RBC 30.4 26.6 - 33.0 05/13/2013 [facility] hemoglobin, blood 15.8 12.6 - 17.7 05/13/2013 [facility] lymphocytes as percent of blood leukocytes 11 14 - 46 05/13/2013 [facility] basophil count, absolute 0.0 x10E3/uL 0.0 - 0.2 05/13/2013 [facility] eosinophils as percent of blood leukocytes 0 0 - 5 05/13/2013 [facility] monocyte count, blood, automated 0.6 X10E3/UL 0.1 - 0.9 05/13/2013 [facility] platelet count 333 X10E3/UL 155 - 379 05/13/2013 [facility] very low density lipoproteins 15 5 - 40 05/09/2013 [facility] chloride, serum 102 97 - 108 05/09/2013 [facility] urea nitrogen, blood 15 8 - 27 05/09/2013 [facility] LDL cholesterol, serum 98 0 - 99 05/09/2013 [facility] urea nitrogen/creatinine ratio, serum 23 10 - 22 05/09/2013 [facility] HDL cholesterol, serum 57 >39 05/09/2013 [facility] creatinine, serum 0.66 0.76 - 1.27 05/09/2013 [facility] albumin/globulin ratio, serum 1.6 1.1 - 2.5 05/09/2013 [facility] cholesterol, serum 170 100 - 199 05/09/2013 [facility] bilirubin, serum, total 1.0 0.0 - 1.2 05/09/2013 [facility] aspartate aminotransferase (SGOT), serum 12 0 - 40 05/09/2013 [facility] potassium, serum 4.5 3.5 - 5.2 05/09/2013 [facility] albumin, serum 4.7 3.6 - 4.8 05/09/2013 [facility] sodium, serum 137 134 - 144 05/09/2013 [facility] carbon dioxide, venous blood 18 19 - 28 05/09/2013 [facility] triglyceride, serum, fasting 73 0 - 149 05/09/2013 [facility] calcium, serum 10.6 8.6 - 10.2 05/09/2013 [facility] alanine aminotransferase (SGPT), serum 11 0 - 44 05/09/2013 [facility] protein, total, serum 7.6 6.0 - 8.5 05/09/2013 [facility] alkaline phosphatase, serum 117 44 - 103 05/09/2013 [facility] hemoglobin A1C, blood, as % of total hemoglobin 6.0 4.8 - 5.6 05/09/2013 [facility] globulin, serum 2.9 1.5 - 4.5 05/09/2013 [facility] Estimated Glomerular Filtration Rate (calc) 104 >59 05/09/2013 [facility] blood glucose, random 117 65 - 99 05/09/2013 [facility] prostate specific antigen 2.3 0.0 - 4.0 05/09/2013 [facility] parathormone, serum 32 15 - 65 11/05/2012 [facility] calcium, serum, ionized 5.6 4.5 - 5.6 11/05/2012 [facility] vitamin D 25-hydroxy, serum 22.6 30.0 - 100.0 11/05/2012 [facility] thyroid stimulating hormone, serum 1.400 0.450 - 4.500 09/17/2012 [facility] thyroxine, serum, free 1.38 0.82 - 1.77 09/17/2012 [facility] mucus on urinalysis Present (Not Estab.) 07/20/2011 [facility] WBC urine on microscopy 0-5 /hpf (0 - 5 07/20/2011 [facility] epithelial cells, urine 0-10 (0 - 10 07/20/2011 [facility] hepatitis B surface antigen Negative (Negative) 07/20/2011 [facility] uric acid, serum 7.9 (3.7 - 8.6 07/20/2011 [facility] leukocyte esterase, urine, by dipstick Negative (Negative) 07/20/2011 [facility] phosphate, serum 4.1 (2.5 - 4.5 07/20/2011 [facility] hepatitis C antibody, serum <0.1 (0.0 - 0.9 07/20/2011 [facility] urine color Yellow (Yellow) 07/20/2011 [facility] bilirubin, urine Negative (Negative) 07/20/2011 [facility] hepatitis A antibody, IgM Negative (Negative) 07/20/2011 [facility] appearance, urine Clear (Clear) 07/20/2011 [facility] urinalysis, microscopic examination Microscopic follows if indicated. 07/20/2011 [facility] pH, urine, semiquantitative 6.5 (5.0 - 7.5 07/20/2011 [facility] specific gravity, body fluid 1.019 (1.005 - 1.030 07/20/2011 [facility] RBC, Urine 0-3 /hpf (0 - 3 07/20/2011 [facility] protein, urine, semiquantitative (dipstick) Negative (Negative/Trace) 07/20/2011 [facility] microscopic exam See below: 07/20/2011 [facility] nitrate, urine Negative (Negative) 07/20/2011 [facility] bacteria, urine microscopy None seen (None seen/Few) 07/20/2011 [facility] glucose, urine, semiquantitative Negative (Negative) 07/20/2011 [facility] eGFR if 90 ( >59) 07/20/2011 [facility] hepatitis B virus core antibody, IgM, PT, serum, quantitative Negative (Negative) 07/20/2011 [facility] Occult Blood, urine Negative (Negative) 07/20/2011 [facility] LDL/HDL ratio, serum 2.3 ratio units (0.0 - 3.6 07/20/2011 [facility] urobilinogen, urine, semiquantitative (dipstick) 0.2 (0.0 - 1.9 07/20/2011 [facility] ketones, urine, by test strip Negative (Negative) 07/20/2011 [facility] Pathology Reports No Data Provided for This Section Diagnostic Reports No Data Provided for This Section Consultation Notes No Data Provided for This Section Discharge Summaries No Data Provided for This Section History and Physicals No Data Provided for This Section Vital Signs Vital Sign Value Date Comments Source Diastolic (mm Hg) 95 02/13/2019 [facility] Systolic (mm Hg) 143 02/13/2019 [facility] Height 66 02/13/2019 [facility] Heart Rate 85 02/13/2019 [facility] Weight 194.13 02/13/2019 [facility] Diastolic (mm Hg) 88 01/16/2019 [facility] Systolic (mm Hg) 143 01/16/2019 [facility] Height 66 01/16/2019 [facility] Heart Rate 84 01/16/2019 [facility] Weight 192 01/16/2019 [facility] Diastolic (mm Hg) 71 12/12/2018 [facility] Systolic (mm Hg) 147 12/12/2018 [facility] Height 66 12/12/2018 [facility] Heart Rate 83 12/12/2018 [facility] Weight 195.40 12/12/2018 [facility] Encounters Location Location Details Encounter Type Encounter Number Reason For Visit Attending Provider ADM Date DC Date Status Source [facility] Vst, New Level I [id number] [facility] 04/19/2011 [facility] Vst, Est Level II [id number] [facility] 07/19/2011 [facility] Vst, Est Level III [id number] [facility] 08/09/2011 [facility] Vst, Est Level IV [id number] Chrissy Irby MD 09/17/2012 [facility] Vst, Est Level IV [id number] [facility] Level IV [id number] Chrissy Irby MD 05/13/2013 [facility] Est Patient Exp Problem - 06134 [id number] Sravanthi Hopper MD 05/22/2013 [facility] Vst, Est Level III [id number] Devora Kapoorchristopher LYNNE 05/08/2014 [facility] Est Patient Detailed - 34924 [id number] Pernell Isaacs MD 2017 [facility] Est Patient Exp Problem - 47633 [id number] Angi Davila MD 12/12/2018 [facility] Est Patient Detailed - 40147 [id number] Angi Davila MD 01/16/2019 [facility] [place] Est Patient Exp Problem - 17022 [id number] Angi Davila MD 02/13/2019 [facility] Procedures Procedure Code Date Perfomer Comments Source Diagnostic evaluation with [facility] - [id number] 09/04/2017 Ferny VALVERDE [facility] Assessment and Plan No Data Provided for This Section Plan of Care No Data Provided for This Section Social History No Data Provided for This Section Family History No Data Provided for This Section Advance Directives Order Name Results Value Date Source Advance Directives DISCUSSED - NO DECISION MADE DISCUSSED - NO DECISION MADE 11/05/2012 [facility] Functional Status No Data Provided for This Section
--- OUTSIDE RECORDS SUMMARY | 2019-02-19 06:14 | XMS REPORT ---
Author Author Admin, [place] Organization [facility] Address [address] [place] [address] Phone Allergies, Adverse Reactions, Alerts Allergy Name Reaction Description Start Date Severity Status Provider No Known Allergies Pernell Isaacs MD Conditions or Problems Problem Name Problem Code Onset Date Status Entry Date Provider Comment Standard Description Annotate Obstructive sleep apnea of adult 327.23 Active Angi Davila MD Obstructive sleep apnea (adult) (pediatric) ANXIETY DISORDER, UNSPECIFIED Active Pernell Isaacs MD Anxiety state, unspecified DEPRESSIVE DISORDER, MAJOR, RECURRENT EPISODE, MILD Active Perenll Isaacs MD Major depressive disorder, recurrent episode, [...] Name NDC Status Provider Patient Instruction MIRTAZAPINE 30 MG ORAL TABLET One tablet nightly. MIRTAZAPINE 61918238687 Active Angi Davila MD Active ENOVARX-IBUPROFEN CREAM Apply to area BID for 14 days. IBUPROFEN CREA 16754081595 Active Pernell Isaacs MD Active QUETIAPINE FUMARATE 300 MG ORAL TABLET Half a tablet nightly. QUETIAPINE FUMARATE 59942874497 Active Angi Davila MD Active PROMETHAZINE HCL 25 MG ORAL TABLET 1 By Mouth Three Times a Day As Needed nausea PROMETHAZINE HCL 65980716427 Active Chrissy Irby MD Active ASPIRIN 81 MG ORAL TABLET 1 by mouth every day, heart protection ASPIRIN 99124440197 Active Chrissy Irby MD Active LISINOPRIL 40 MG ORAL TABLET 1 By Mouth Every Day, blood pressure LISINOPRIL 43956648105 Active Devora De Luna NP Active RAPAFLO 8 MG ORAL CAPSULE 1 By Mouth Every Day, prostate SILODOSIN 05232162175 Active Chrissy Irby MD Active TERAZOSIN HCL 2 MG ORAL CAPSULE 1 tab By Mouth qhs TERAZOSIN HCL 09510075061 Active Girish Pickett [facility] Active CELEXA 20 MG ORAL TABLET 1 By Mouth Every a.m. CELEXA 20 MG ORAL TABLET 439623 CITALOPRAM HYDROBROMIDE Inactive AMLODIPINE BESYLATE 5 MG ORAL TABLET 1 tab by mouth daily, blood pressure AMLODIPINE BESYLATE 5 MG ORAL TABLET 935351 AMLODIPINE BESYLATE Inactive ETODOLAC 400 MG ORAL TABLET 1 By Mouth Every Day, pain/osteoarthritis ETODOLAC 400 MG ORAL TABLET 959619 ETODOLAC Inactive GABAPENTIN 300 MG ORAL CAPSULE 1 tab By Mouth qhs GABAPENTIN 300 MG ORAL CAPSULE 977629 GABAPENTIN Inactive TRAZODONE HCL 150 MG ORAL TABLET Half to one tablet nightly. TRAZODONE HCL 74230408622 No Longer Active Angi Davila MD Active CELEXA 20 MG ORAL TABLET 1 By Mouth Every a.m. CITALOPRAM HYDROBROMIDE 81422138745 No Longer Active Pernell Isaacs MD Active AMLODIPINE BESYLATE 5 MG ORAL TABLET 1 tab by mouth daily, blood pressure AMLODIPINE BESYLATE 96378017538 No Longer Active Devora De Luna NP Active ETODOLAC 400 MG ORAL TABLET 1 By Mouth Every Day, pain/osteoarthritis ETODOLAC 35909333685 No Longer Active Chrissy Irby MD Active LISINOPRIL-HYDROCHLOROTHIAZIDE 20-12.5 MG ORAL TABLET 1 tab By Mouth qa LISINOPRIL-HYDROCHLOROTHIAZIDE 73299330003 No Longer Active Chrissy Irby MD Active GABAPENTIN 300 MG ORAL CAPSULE 1 tab By Mouth [facility] GABAPENTIN 14178243332 No Longer Active Chrissy Irby MD Active LISINOPRIL 40 MG ORAL TABLET one half tablet by mouth daily LISINOPRIL 04590170960 No Longer Active Girish JARAMILLO Active Advance Directives Directive Description Start Date DISCUSSED - NO DECISION MADE Vital Signs Date Name Value Unit Range Description blood pressure, diastolic 95 mm[Hg] BP stark blood pressure, systolic 143 mm[Hg] BP sys height E&M 66 [in_us] Bdy height pulse rate E&M 85 /min Heart rate weight E&M 194.13 [lb_av] Weight Measured blood pressure, diastolic 88 mm[Hg] BP stark blood pressure, systolic 143 mm[Hg] BP sys height E&M 66 [in_us] Bdy height pulse rate E&M 84 /min Heart rate weight E&M 192 [lb_av] Weight Measured blood pressure, diastolic 71 mm[Hg] BP stark [...] as percent of blood leukocytes 7 % -12 Lab Report: Comp. Metabolic Panel (14), Lipid Panel, Hemoglobin A1c, Pro ... - Chemistry creatinine, serum 0.66 mg/dL 0.76-1.27 albumin/globulin ratio, serum 1.6 1.1-2.5 cholesterol, serum 170 mg/dL 100-199 Lab Report: [...] patient Eunice Andres MD, Devora De Luna POULTRY CULLER, Bijal Bernal MA, Hyun Camarena MA, Bijal Orozco MA lab, Keo LANDA, Pat Uribe RN Lab Report: CBC With [...] (Negative) Encounters Date Encounter Provider Code Facility 09:50:46 CDT Est Patient Exp Problem - 29092 Angi Davila MD CPT-05477 [place] 09:34:24 CDT Est Patient Detailed - 04860 Angi Davila MD CPT-49562 [facility] 08:43:30 CDT Est Patient Exp Problem - 84962 Angi Davila MD CPT-43488 [facility] 10:35:31 APPLE SOLUTIONS CONSULTANT Est Patient Detailed - 72282 Pernell Isaacs MD CPT-23131 [facility] 10:29:32 CDT Ofc Vst, Est Level III Devora De Luna NP CPT-35558 [facility] 11:52:20 CDT Est Patient Exp Problem - 33031 Sravanthi Hopper MD CPT-16007 [facility] 09:36:04 CDT Ofc Vst, Est Level IV Chrissy Irby MD CPT-98798 [facility] 11:27:08 CDT Ofc Vst, Est Level IV Chrissy Irby MD CPT-23437 [facility] 11:28:56 APPLE SOLUTIONS CONSULTANT Ofc Vst, Est Level IV Chrissy Irby MD CPT-53433 [facility] 10:42:28 APPLE SOLUTIONS CONSULTANT Ofc Vst, Est Level III Girish Pickett [facility] CPT-91827 [facility] 12:37:23 APPLE SOLUTIONS CONSULTANT Ofc Vst, Est Level II Girish [facility] CPT-38684 [facility] 10:35:03 CDT Ofc Vst, New Level I Girish [facility] CPT-20668 [facility] Procedures Code Procedure Name Date Entry Date Standard Description CPT-83495 Diagnostic evaluation with [facility] - 51820 10:56:38 APPLE SOLUTIONS CONSULTANT
--- OUTSIDE RECORDS SUMMARY | 2019-02-19 06:15 | XMS REPORT ---
Author Author Admin, [place] Organization [facility] Address [address] [place] [address] Phone Allergies, Adverse Reactions, Alerts Allergy Name Reaction Description Start Date Severity Status Provider No Known Allergies ePrnell Isaacs MD Conditions or Problems Problem Name [...] MG ORAL TABLET One tablet nightly. MIRTAZAPINE 68058521210 Active Angi Davila MD Active ENOVARX-IBUPROFEN CREAM Apply to area BID for 14 days. IBUPROFEN CREA 79684179836 Active Pernell Isaacs MD Active QUETIAPINE FUMARATE 50 MG ORAL TABLET Half to one tablet nightly. QUETIAPINE FUMARATE 82802946822 Active Angi Davila MD Active PROMETHAZINE HCL 25 MG ORAL TABLET 1 By Mouth Three Times a Day As Needed nausea PROMETHAZINE HCL 97863303424 Active Chrissy Irby MD Active ASPIRIN 81 MG ORAL TABLET 1 by mouth every day, heart protection ASPIRIN 08941319920 Active Chrissy Irby MD Active LISINOPRIL 40 MG ORAL TABLET 1 By Mouth Every Day, blood pressure LISINOPRIL 35468080565 Active Devora De Luna NP Active RAPAFLO 8 MG ORAL CAPSULE 1 By Mouth Every Day, prostate SILODOSIN 64032113572 Active Chrissy Irby MD Active TERAZOSIN HCL 2 MG ORAL CAPSULE 1 tab By Mouth qhs TERAZOSIN HCL 62532649726 Active Girish Pickett [facility] Active CELEXA 20 MG ORAL TABLET 1 By Mouth Every a.m. CELEXA 20 MG ORAL TABLET 945110 CITALOPRAM HYDROBROMIDE Inactive AMLODIPINE BESYLATE 5 MG ORAL TABLET 1 tab by mouth daily, blood pressure AMLODIPINE BESYLATE 5 MG ORAL TABLET 023869 AMLODIPINE BESYLATE Inactive ETODOLAC 400 MG ORAL TABLET 1 By Mouth Every Day, pain/osteoarthritis ETODOLAC 400 MG ORAL TABLET 162914 ETODOLAC Inactive GABAPENTIN 300 MG ORAL CAPSULE 1 tab By Mouth qhs GABAPENTIN 300 MG ORAL CAPSULE 566330 GABAPENTIN Inactive TRAZODONE HCL 150 MG ORAL TABLET Half to one tablet nightly. TRAZODONE HCL 88758202779 No Longer Active Angi Davila MD Active CELEXA 20 MG ORAL TABLET 1 By Mouth Every a.m. CITALOPRAM HYDROBROMIDE 52299790282 No Longer Active Pernell Isaacs MD Active AMLODIPINE BESYLATE 5 MG ORAL TABLET 1 tab by mouth daily, blood pressure AMLODIPINE BESYLATE 71758474055 No Longer Active Devora De Luna NP Active ETODOLAC 400 MG ORAL TABLET 1 By Mouth Every Day, pain/osteoarthritis ETODOLAC 44895935658 No Longer Active Chrissy Irby MD Active LISINOPRIL-HYDROCHLOROTHIAZIDE 20-12.5 MG ORAL TABLET 1 tab By Mouth qa LISINOPRIL-HYDROCHLOROTHIAZIDE 16127403922 No Longer Active Chrissy Irby MD Active GABAPENTIN 300 MG ORAL CAPSULE 1 tab By Mouth [facility] GABAPENTIN 17657627671 No Longer Active Chrissy Irby MD Active LISINOPRIL 40 MG ORAL TABLET one half tablet by mouth daily LISINOPRIL 82830230209 No Longer Active Girish JARAMILLO Active Advance Directives Directive Description Start Date DISCUSSED - NO DECISION MADE Vital Signs Date Name Value Unit Range Description blood pressure, diastolic 88 mm[Hg] BP stark [...] patient Eunice Andres MD, Devora De Luna STAFF CYTOTECHNOLOGIST, Bijal Bernal MA, Hyun Camarena MA, Bijal [...] (Negative) Encounters Date Encounter Provider Code Facility 09:34:24 CDT Est Patient Detailed - 69516 Angi Davila MD CPT-37694 [facility] 08:43:30 CDT Est Patient Exp Problem - 31047 Angi Davila MD CPT-27665 [facility] 10:35:31 UNIT MANAGER [employer]ENCE [employer]ORES Est Patient Detailed - 78537 Pernell Isaacs MD CPT-57843 [facility] 10:29:32 CDT Ofc Vst, Est Level III Devora De Luna STAFF CYTOTECHNOLOGIST CPT-12900 [facility] 11:52:20 CDT Est Patient Exp Problem - 84383 Sravanthi Hopper MD CPT-33393 [facility] 09:36:04 CDT Ofc Vst, Est Level IV Chrissy Irby MD CPT-51516 [facility] 11:27:08 CDT Ofc Vst, Est Level IV Chrissy Irby MD [facility]-44227 [facility] 11:28:56 UNIT MANAGER [employer]ORES Ofc Vst, Est Level IV Chrissy Irby MD CPT-98227 [facility] 10:42:28 UNIT MANAGER [employer]IENCE [employer]ORES Ofc Vst, Est Level III Girish Pickett [facility] CPT-20645 [facility] 12:37:23 UNIT MANAGER [employer]IENCE [employer]ORES Ofc Vst, Est Level II Girish Pickett [facility] CPT-52934 [facility] 10:35:03 CDT Ofc Vst, New Level I Girish [facility]-27385 [facility] Procedures Code Procedure Name Date Entry Date Standard Description CPT-57259 Diagnostic evaluation with medical - 89927 10:56:38 UNIT MANAGER [employer]IENCE [employer]ORES
--- OUTSIDE RECORDS SUMMARY | 2019-02-19 06:16 | XMS REPORT ---
Author Author Admin, [place] Organization [facility] Address [address] [place] [address] Phone Allergies, Adverse Reactions, Alerts Allergy Name [...] MG ORAL TABLET One tablet nightly. MIRTAZAPINE 10015975438 Active Angi Davila MD Active ENOVARX-IBUPROFEN CREAM Apply to area BID for 14 days. IBUPROFEN CREA 57200588850 Active Pernell Isaacs MD Active QUETIAPINE FUMARATE 300 MG ORAL TABLET Half a tablet nightly. QUETIAPINE FUMARATE 45018607151 Active Angi Davila MD Active PROMETHAZINE HCL 25 MG ORAL TABLET 1 By Mouth Three Times a Day As Needed nausea PROMETHAZINE HCL 96075450835 Active Chrissy Irby MD Active ASPIRIN 81 MG ORAL TABLET 1 by mouth every day, heart protection ASPIRIN 14912916924 Active Chrissy Irby MD Active LISINOPRIL 40 MG ORAL TABLET 1 By Mouth Every Day, blood pressure LISINOPRIL 18722783789 Active Devora De Luna NP Active RAPAFLO 8 MG ORAL CAPSULE 1 By Mouth Every Day, prostate SILODOSIN 94758513943 Active Chrissy Irby MD Active TERAZOSIN HCL 2 MG ORAL CAPSULE 1 tab By Mouth qhs TERAZOSIN HCL 62184000971 Active Girish Pickett [facility] Active CELEXA 20 MG ORAL TABLET 1 By Mouth Every a.m. CELEXA 20 MG ORAL TABLET 226294 CITALOPRAM HYDROBROMIDE Inactive AMLODIPINE BESYLATE 5 MG ORAL TABLET 1 tab by mouth daily, blood pressure AMLODIPINE BESYLATE 5 MG ORAL TABLET 493848 AMLODIPINE BESYLATE Inactive ETODOLAC 400 MG ORAL TABLET 1 By Mouth Every Day, pain/osteoarthritis ETODOLAC 400 MG ORAL TABLET 642627 ETODOLAC Inactive GABAPENTIN 300 MG ORAL CAPSULE 1 tab By Mouth qhs GABAPENTIN 300 MG ORAL CAPSULE 513921 GABAPENTIN Inactive TRAZODONE HCL 150 MG ORAL TABLET Half to one tablet nightly. TRAZODONE HCL 73738849913 No Longer Active Angi Davila MD Active CELEXA 20 MG ORAL TABLET 1 By Mouth Every a.m. CITALOPRAM HYDROBROMIDE 80651947437 No Longer Active Pernell Isaacs MD Active AMLODIPINE BESYLATE 5 MG ORAL TABLET 1 tab by mouth daily, blood pressure AMLODIPINE BESYLATE 58386317245 No Longer Active Devora De Luna NP Active ETODOLAC 400 MG ORAL TABLET 1 By Mouth Every Day, pain/osteoarthritis ETODOLAC 38016635064 No Longer Active Chrissy Irby MD Active LISINOPRIL-HYDROCHLOROTHIAZIDE 20-12.5 MG ORAL TABLET 1 tab By Mouth qa LISINOPRIL-HYDROCHLOROTHIAZIDE 06148190799 No Longer Active Chrissy Irby MD Active GABAPENTIN 300 MG ORAL CAPSULE 1 tab By Mouth [facility] GABAPENTIN 47223945999 No Longer Active Chrissy Irby MD Active LISINOPRIL 40 MG ORAL TABLET one half tablet by mouth daily LISINOPRIL 24830960898 No Longer Active Girish JARAMILLO Active Advance [...] patient Eunice Andres MD, Devora De Luna [employer], Bijal Bernal MA, Hyun Camarena MA, Bijal [...] 09:50:46 CDT Est Patient Exp Problem - 17528 Angi Davila MD CPT-76595 [place] 09:34:24 CDT Est Patient Detailed - 92660 Angi Davila MD CPT-50354 [facility] 08:43:30 CDT Est Patient Exp Problem - 37287 Angi Davila MD CPT-96499 [facility] 10:35:31 [employer] Est Patient Detailed - 58154 Pernell Isaacs MD CPT-13639 [facility] 10:29:32 CDT Ofc Vst, Est Level III Devora De Luna NP CPT-68953 [facility] 11:52:20 CDT Est Patient Exp Problem - 98207 Sravanthi Hopper MD CPT-54746 [facility] 09:36:04 CDT Ofc Vst, Est Level IV Chrissy Irby MD CPT-91316 [facility] 11:27:08 CDT Ofc Vst, Est Level IV Chrissy Irby MD CPT-29123 [facility] 11:28:56 [employer] Ofc Vst, Est Level IV Chrissy Irby MD CPT-76494 [facility] 10:42:28 [employer] Ofc Vst, Est Level III Girish Pickett [facility] CPT-04461 [facility] 12:37:23 [employer] Ofc Vst, Est Level II Girish [facility] CPT-35713 [facility] 10:35:03 CDT Ofc Vst, New Level I Girish [facility] CPT-95976 [facility] Procedures Code Procedure Name Date Entry Date Standard Description CPT-84653 Diagnostic evaluation with [facility] - 53592 10:56:38 [employer]
--- NOTE | 2019-02-19 08:25 | Diagnostic Imaging Report ---
Exam: KUB - 2 views Clinical History: Preoperative Comparison: KUB of 11/18/2016, CT abdomen pelvis of 11/16/2018 Findings: Nonobstructive bowel gas pattern. No evidence of free intraperitoneal air. Prior bilateral renal calculi seen on CT of 11/16/2018 are not radiographically apparent on this study. No acute bony abnormality. Impression: Renal calculi previously seen by CT are not well visualized on this abdominal radiograph. Nonobstructive bowel gas pattern. Signed by: Sue Cuadra MD on 02/19/2019 8:22 AM
[2019-02-19 09:20] VITALS: BP 141/99
--- NOTE | 2019-05-01 06:03 | Operative Report ---
DATE OF PROCEDURE: 02/19/2019 SURGEON: Allan Siddiqi MD PREOPERATIVE DIAGNOSIS: Left ureterolithiasis. POSTOPERATIVE DIAGNOSIS: Left ureterolithiasis. OPERATION PERFORMED: 1. Staged left-sided extracorporeal shockwave lithotripsy. 2. Supervision of fluoroscopy, no radiologist present. ANESTHESIA: General. COMPLICATIONS: None. CLINICAL SUMMARY: Darian Nuñez is a 68-year-old man, who has recurrent urolithiasis. He is brought for the above procedure. The patient has had a prior right lower pole ESWL, cystoscopy and retrograde ureteropyelography. He is brought to the operating room for the above procedure. He is aware of the risks of bleeding, infection, injury to adjacent structures, need for additional procedures and elected to proceed. OPERATIVE PROCEDURE IN DETAIL: Informed consent was verified. Darian Nuñez was properly identified, taken to the operating room, placed on the lithotripsy table in supine position. Anesthesia was uneventfully begun. The patient was then carefully and gently repositioned to localize his left upper pole stone with biplanar fluoroscopy. A total of 3000 shocks were delivered with excellent fragmentation. We could not visualize the previously treated right lower pole stone. The patient was uneventfully reversed from anesthesia and taken to recovery room in stable condition. There were no complications to the procedure. He tolerated the procedure well. We will follow the patient up in the office and of course on a long-term indefinite basis. Allan Siddiqi MD [place]/[facility] /[id number]
== END | disposition home or self-care (01) ==
LOC: OR 05:57
PROVIDERS: ATTEND Urology
DX: N20.1 Calculus of ureter (principal); I10 Essential (primary) hypertension
CPT/HCPCS: 36415; 50590; 74018; 85025; J0696; J1100; J2001; J2405; J2704; J3010

== ENCOUNTER → 2020-04-22 | Day surgery (SDC) | payer MEDICARE, BC, OTHER ==
[2020-04-17 15:47] LABS: BASOPHILS # (AUTO) 0.1 (0.0-0.1); BASOPHILS % 0.7 % (0.0-1.0); EOSINOPHILS # (AUTO) 0.1 (0.0-0.4); EOSINOPHILS % 0.8 % (0.0-6.0); LYMPHOCYTES # (AUTO) 1.6 (1.0-3.2); LYMPHOCYTES % 17.6 % (18.0-39.1); MEAN CORPUSCULAR HGB CONC 32.6 g/dL (31-35); MONOCYTES # (AUTO) 0.8 (0.2-0.8); MONOCYTES % 8.9 % (4.4-11.3); NEUTROPHILS # (AUTO) 6.5 (2.1-6.9); NEUTROPHILS % 71.4 % (38.7-80.0); PLATELET COUNT 309 x10e3/uL (140-360); RED BLOOD COUNT 5.17 x10e6/uL (4.3-5.7); RED CELL DISTRIBUTION WIDTH 14.8 % (11.7-14.4)
--- NOTE | 2020-04-17 16:34 | Diagnostic Imaging Report ---
EXAMINATION: CHEST 2 VIEWS, ABDOMEN-1VIEW (KUB) INDICATION: Pre-operative COMPARISON: Chest radiograph 01/03/2019,, KUB of 02/19/2019 CT abdomen and pelvis of 11/16/2018 FINDINGS: LINES/TUBES:None LUNGS:The lungs are well-inflated. Mild bibasilar patchy opacities, most likely subsegmental atelectasis. PLEURA:No pleural effusion or pneumothorax. MEDIASTINUM:The cardiomediastinal silhouette appears normal in size and shape. BONES/SOFT TISSUES:No acute osseous injury. ABDOMEN:No free air under the diaphragm. No radiographically apparent urinary calculi. Nonobstructive bowel gas pattern. No free air. No acute osseous injury. IMPRESSION: Mild bibasilar opacities, most likely subsegmental atelectasis. No radiographically apparent urinary calculi. Signed by: Sue Cuadra MD on 04/17/2020 4:31 PM
[~2020-04-22] MED LIST changes: +AMLODIPINE-VAL1 EAC2 PO; +AMPICILLIN SOD 1 GM/NS 50ML 50 ML IV ONE; +B&O 60MG R/S 60 MG SUPP PR ONE; +CARVEDILOL12.5 MG PO; -CEFTRIAXONE SOD 1 GM/NS 50 ML 50 ML IV ONE; +CELEBREX100 MG PO; -DEXAMETHASONE SOD PHOS INJ 4 MG/ML VIAL ONE; +FARXIGA10 MG PO; +GENTAMICIN 80MG/NS 100 ML 200 ML IV ONE; +HYDRALAZINE HCL 20 MG/ML VIAL ONE; +IBUPROFEN200 MG PO; +IOPAMIDOL 300MG/ML 50ML INFUS..BTL IV ONE; +LIDOCAINE HCL 2% JELLY 5 ML TUBE ONE; +LISINOPRIL40 MG PO; +MIDAZOLAM HCL 2 MG/2 ML VIAL ONE; +QUETIAPINE FUM100 MG PO; +SIMVASTATIN40 MG PO
[2020-04-22 10:40] VITALS: BP 133/88
--- NOTE | 2020-05-08 08:26 | Operative Report ---
DATE OF PROCEDURE: 04/22/2020 SURGEON: Allan Siddiqi MD PREOPERATIVE DIAGNOSES: 1. Right nephrolithiasis. 2. Urinary tract infections. POSTOPERATIVE DIAGNOSES: 1. Right nephrolithiasis. 2. Urinary tract infections. 3. Bulbar urethral stricture. 4. Malrotated kidneys. OPERATION PERFORMED: Note: These were all staged procedures as part of a multistep process of managing patient's urolithiasis. 1. Right-sided extracorporeal shockwave lithotripsy (separate procedure performed from separate approach for the stones). 2. Cystourethroscopy with calibration and dilation of bulbar urethral stricture (separate procedure performed for the diagnosis of stricture). 3. Cystourethroscopy with bilateral ureteral catheterization and retrograde ureteropyelography (separate procedure performed for the urinary tract infections). 4. Interpretation of retrograde ureteropyelography, no radiologist present. ANESTHESIA: General. COMPLICATIONS: None. CLINICAL SUMMARY: Darian Nuñez was a 69-year-old man with recurrent urolithiasis. He failed to follow up for quite some time, but developed bilateral stones and the patient is brought to the operating room for a stone management. He is aware of the risks of bleeding, infection, injury to adjacent structures, need for additional procedures and elected to proceed. OPERATIVE PROCEDURE IN DETAIL: Informed consent was verified. Darian Nuñez was properly identified, taken to the operating room, placed on the lithotripsy table in supine position. Anesthesia was uneventfully begun. The patient's right nephrolithiasis was localized with biplanar fluoroscopy. A total of 3000 shocks were delivered to the 7 mm lower calyceal stone with fragmentation noted. The patient was then carefully and gently repositioned in the dorsal lithotomy position. All pressure points well padded. His genitalia were prepared and draped in usual sterile fashion. A 22.5-Yi cystoscope sheath with the visual obturator in place was atraumatically inserted. The patient's urethra was guided down the unremarkable distal urethra to the bulbar region with a short and relatively tight stricture. We popped across the stricture and gently dilating with the visual obturator in place and was calibrating and dilating to 22.5-Yi, went through the normal sphincteric region, went through the prostate bed, which was significant for visually obstructing BPH. We entered the patient's bladder where there was some erythematous little circles consistent with chronic cystitis. There were no suspicious lesions, but there were some mucosal calcifications medial to each ureteral orifices . There were no tumors and no suspicious lesions. Ureteral catheter was placed in each ureter and retrograde ureteropyelograms were performed. Interpretation of retrograde ureteropyelography contrast was instilled in retrograde fashion bilaterally. The kidneys are significantly malrotated. There were some filling defects in the region where we performed lithotripsy. No other stones could really be visualized on fluoroscopy today. The patient's bladder was drained. Cystoscope was withdrawn. Belladonna and opium suppository were placed revealing a 40 g prostate, smooth, nonfluctuant without any nodules. The patient was then uneventfully reversed from anesthesia and taken to recovery room in stable condition. There were no complications to the procedure and he tolerated the procedure well. Explicit postop instructions were given and we will follow the patient up in the office. MD KEN Lujan/[place] /[id number]
== END | disposition home or self-care (01) ==
LOC: OR 05:28
PROVIDERS: ATTEND Urology
DX: N20.0 Calculus of kidney (principal); N39.0 Urinary tract infection, site not specified; N35.912 Unspecified bulbous urethral stricture, male; Q63.2 Ectopic kidney; N40.1 Benign prostatic hyperplasia with lower urinary tract symptoms; N13.8 Other obstructive and reflux uropathy; I10 Essential (primary) hypertension; Z01.810 Encounter for preprocedural cardiovascular examination; Z01.812 Encounter for preprocedural laboratory examination; Z01.818 Encounter for other preprocedural examination; Z11.59 Encounter for screening for other viral diseases; Z87.891 Personal history of nicotine dependence
CPT/HCPCS: 36415; 50590; 52281; 71046; 74018; 85025; 93005; C1758; J0290; J0360; J1580; J2001 ×2; J2250; J2405; J2704; J3010; Q9967; U0002

== ENCOUNTER → 2022-03-30 | Outpatient (CLI) | payer MEDICARE, BC ==
[~2022-03-30] MED LIST changes: -AMPICILLIN SOD 1 GM/NS 50ML 50 ML IV ONE; -B&O 60MG R/S 60 MG SUPP PR ONE; -FENTANYL CITRATE/PF 100MCG/2 ML INJ ONE; -GENTAMICIN 80MG/NS 100 ML 200 ML IV ONE; -HYDRALAZINE HCL 20 MG/ML VIAL ONE; -IOPAMIDOL 300MG/ML 50ML INFUS..BTL IV ONE; -LIDOCAINE HCL 2% JELLY 5 ML TUBE ONE; -LIDOCAINE HCL 2% LOCAL INJ 5 ML SDV VIAL INJ ONE; -MIDAZOLAM HCL 2 MG/2 ML VIAL ONE; -ONDANSETRON HCL INJ 2MG/ML 2ML 2 MG/ML VIAL ONE; -PROPOFOL IV EMULSION 10 MG/ML 20 ML VIAL ONE; -SEVOFLURANE INHAL SOLN 250 ML PEN BTL ONE
== END ==
LOC: US 09:44
PROVIDERS: ATTEND Urology
DX: R31.21 Asymptomatic microscopic hematuria (principal)
CPT/HCPCS: 74018; 76770

== ENCOUNTER → 2022-05-13 | Outpatient (CLI) | payer MEDICARE, BC | LOC: CT 09:55 | PROVIDERS: ATTEND Urology | DX: N20.0 Calculus of kidney (principal) | CPT/HCPCS: 74176 ==

== ENCOUNTER → 2022-05-20 | Day surgery (SDC) | payer MEDICARE, BC ==
[2022-05-18 10:17] LABS: BASOPHILS # (AUTO) 0.1 (0.0-0.1); BASOPHILS % 0.8 % (0.0-1.0); EOSINOPHILS # (AUTO) 0.1 (0.0-0.4); EOSINOPHILS % 1.6 % (0.0-6.0); HEMATOCRIT 45.9 % (38.2-49.6); HEMOGLOBIN 14.6 g/dL (14.0-18.0); LYMPHOCYTES # (AUTO) 1.2 (1.0-3.2); LYMPHOCYTES % 16.5 % (18.0-39.1); MEAN CORPUSCULAR HEMOGLOBIN 28.8 pg (28-32); MEAN CORPUSCULAR HGB CONC 31.8 g/dL (31-35); MEAN CORPUSCULAR VOLUME 90.5 fL (81-99); MONOCYTES # (AUTO) 0.7 (0.2-0.8); MONOCYTES % 9.2 % (4.4-11.3); NEUTROPHILS # (AUTO) 5.3 (2.1-6.9); NEUTROPHILS % 71.5 % (38.7-80.0); PLATELET COUNT 280 x10e3/uL (140-360); RED BLOOD COUNT 5.07 x10e6/uL (4.3-5.7); RED CELL DISTRIBUTION WIDTH 15.1 % (11.7-14.4)
[2022-05-18 10:43] LABS: ANION GAP 15.1 mmol/L (8-16); CALCIUM 10.4 mg/dL (8.4-10.2); CREATININE, SERUM 0.75 mg/dL (0.72-1.25); POTASSIUM 4.1 mmol/L (3.5-5.1)
[~2022-05-20] MED LIST changes: +BELLADONNA/OPIUM 30 MG SUPP RC ONE; +CEFTRIAXONE 1 GM VIAL ONE; +FENTANYL CITRATE/PF 100MCG/2 ML INJ ONE; +LIDOCAINE HCL 2% LOCAL INJ 5 ML SDV VIAL INJ ONE; +ONDANSETRON HCL INJ 2MG/ML 2ML 2 MG/ML VIAL IV ONE; +PHENYLEPHRINE HCL 1% 10 MG/ML VIAL IV ONE; +POVIDONE IODINE 0.05% 0.05 % ML PO ONE; +PROPOFOL IV EMULSION 10 MG/ML 20 ML VIAL IV ONE; +SEVOFLURANE INHAL SOLN 250 ML PEN BTL INH ONE
[2022-05-20 12:25] VITALS: BP 135/89
== END | disposition home or self-care (01) ==
LOC: OR 08:08
PROVIDERS: ATTEND Urology
DX: N20.0 Calculus of kidney (principal); N39.0 Urinary tract infection, site not specified; N13.30 Unspecified hydronephrosis; N40.1 Benign prostatic hyperplasia with lower urinary tract symptoms; R35.1 Nocturia; R39.14 Feeling of incomplete bladder emptying; I10 Essential (primary) hypertension; Z01.810 Encounter for preprocedural cardiovascular examination; Z01.812 Encounter for preprocedural laboratory examination; Z01.818 Encounter for other preprocedural examination; Z79.899 Other long term (current) drug therapy; Z68.31 Body mass index [BMI] 31.0-31.9, adult; Z80.43 Family history of malignant neoplasm of testis
CPT/HCPCS: 36415; 50590; 52332; 71046; 74018; 80048; 83970; 84550; 85025; 87086; 87186; 93005; C1758; C2617; J0696; J2001; J2370; J2405; J2704; J3010

== ENCOUNTER → 2022-06-25 | Day surgery (SDC) | payer MEDICARE, BC ==
[2022-06-24 11:18] LABS: BASOPHILS # (AUTO) 0.1 (0.0-0.1); BASOPHILS % 0.6 % (0.0-1.0); EOSINOPHILS # (AUTO) 0.2 (0.0-0.4); EOSINOPHILS % 1.9 % (0.0-6.0); HEMATOCRIT 45.5 % (38.2-49.6); HEMOGLOBIN 14.5 g/dL (14.0-18.0); LYMPHOCYTES # (AUTO) 1.3 (1.0-3.2); LYMPHOCYTES % 13.3 % (18.0-39.1); MEAN CORPUSCULAR HEMOGLOBIN 28.8 pg (28-32); MEAN CORPUSCULAR HGB CONC 31.9 g/dL (31-35); MEAN CORPUSCULAR VOLUME 90.3 fL (81-99); MONOCYTES # (AUTO) 0.8 (0.2-0.8); MONOCYTES % 7.7 % (4.4-11.3); NEUTROPHILS # (AUTO) 7.7 (2.1-6.9); NEUTROPHILS % 76.1 % (38.7-80.0); PLATELET COUNT 255 x10e3/uL (140-360); RED BLOOD COUNT 5.04 x10e6/uL (4.3-5.7); RED CELL DISTRIBUTION WIDTH 14.4 % (11.7-14.4)
[2022-06-24 11:38] LABS: ANION GAP 11.8 mmol/L (8-16); CALCIUM 9.7 mg/dL (8.4-10.2); CREATININE, SERUM 0.71 mg/dL (0.72-1.25); POTASSIUM 3.8 mmol/L (3.5-5.1)
[~2022-06-25] MED LIST changes: -BELLADONNA/OPIUM 30 MG SUPP RC ONE; -CEFTRIAXONE 1 GM VIAL ONE; +DEXAMETHASONE SOD PHOS INJ 4 MG/ML SDV ONE; -FENTANYL CITRATE/PF 100MCG/2 ML INJ ONE; +IOPAMIDOL 300MG/ML 50ML INFUS..BTL IV ONE; -ONDANSETRON HCL INJ 2MG/ML 2ML 2 MG/ML VIAL IV ONE; -PHENYLEPHRINE HCL 1% 10 MG/ML VIAL IV ONE; -PROPOFOL IV EMULSION 10 MG/ML 20 ML VIAL IV ONE; +PROPOFOL IV EMULSION 10 MG/ML 20 ML VIAL ONE; -SEVOFLURANE INHAL SOLN 250 ML PEN BTL INH ONE; +SEVOFLURANE INHAL SOLN 250 ML PEN BTL ONE
[2022-06-25] MEDS: CEFTRIAXONE 1 GM VIAL ONE (13:32)
[2022-06-25] MEDS: GENTAMICIN 80MG/NS 100 ML 200 ML IV ONE (13:34)
[2022-06-25 16:00] VITALS: BP 119/79
== END | disposition home or self-care (01) ==
LOC: OR 10:08
PROVIDERS: ATTEND Urology
DX: N20.0 Calculus of kidney (principal); Z46.6 Encounter for fitting and adjustment of urinary device; N35.912 Unspecified bulbous urethral stricture, male; Q63.2 Ectopic kidney; N13.30 Unspecified hydronephrosis; N40.1 Benign prostatic hyperplasia with lower urinary tract symptoms; N13.8 Other obstructive and reflux uropathy; R39.14 Feeling of incomplete bladder emptying; N32.89 Other specified disorders of bladder; I10 Essential (primary) hypertension; Z01.812 Encounter for preprocedural laboratory examination; Z01.818 Encounter for other preprocedural examination; Z79.899 Other long term (current) drug therapy; Z68.31 Body mass index [BMI] 31.0-31.9, adult; Z80.43 Family history of malignant neoplasm of testis
CPT/HCPCS: 36415; 52352; 74018; 74420; 80048; 83970; 84550; 85025; 88300; C1758; C1769; J0696; J1100; J1580; J2001; J2704; Q9967

== ENCOUNTER → 2022-09-09 | Outpatient (CLI) | payer MEDICARE, BC ==
[~2022-09-09] MED LIST changes: -DEXAMETHASONE SOD PHOS INJ 4 MG/ML SDV ONE; +FUROSEMIDE INJ 10 MG/ML 4 ML VIAL ONE; -IOPAMIDOL 300MG/ML 50ML INFUS..BTL IV ONE; +IOPAMIDOL 370 MG/ML 100 ML INFUS..BTL INJ ONE; -LIDOCAINE HCL 2% LOCAL INJ 5 ML SDV VIAL INJ ONE; -POVIDONE IODINE 0.05% 0.05 % ML PO ONE; -PROPOFOL IV EMULSION 10 MG/ML 20 ML VIAL ONE; -SEVOFLURANE INHAL SOLN 250 ML PEN BTL ONE; +SODIUM CHLORIDE 0.9% 250ML 250 ML ONE
[2022-09-09 10:05] LABS: CREATININE, SERUM 0.76 mg/dL (0.72-1.25)
== END ==
LOC: CT 09:06
PROVIDERS: ATTEND Urology
DX: R31.21 Asymptomatic microscopic hematuria (principal); N13.30 Unspecified hydronephrosis; N40.0 Benign prostatic hyperplasia without lower urinary tract symptoms; K57.30 Diverticulosis of large intestine without perforation or abscess without bleeding
CPT/HCPCS: 36415; 74178; 78708; 82565; 84520; A9562; J1940; J7050; Q9967

== ENCOUNTER → 2022-11-18 | Day surgery (SDC) | payer MEDICARE, BC ==
[2022-11-09 09:26] LABS: BASOPHILS # (AUTO) 0.1 (0.0-0.1); BASOPHILS % 0.8 % (0.0-1.0); EOSINOPHILS # (AUTO) 0.2 (0.0-0.4); EOSINOPHILS % 2.2 % (0.0-6.0); HEMATOCRIT 42.9 % (38.2-49.6); HEMOGLOBIN 14.3 g/dL (14.0-18.0); LYMPHOCYTES # (AUTO) 1.2 (1.0-3.2); LYMPHOCYTES % 15.9 % (18.0-39.1); MEAN CORPUSCULAR HGB CONC 33.3 g/dL (31-35); MONOCYTES # (AUTO) 0.6 (0.2-0.8); MONOCYTES % 8.7 % (4.4-11.3); NEUTROPHILS # (AUTO) 5.2 (2.1-6.9); NEUTROPHILS % 72.1 % (38.7-80.0); PLATELET COUNT 260 x10e3/uL (140-360); RED BLOOD COUNT 4.93 x10e6/uL (4.3-5.7); RED CELL DISTRIBUTION WIDTH 14.7 % (11.7-14.4)
[2022-11-09 09:56] LABS: ANION GAP 14.2 mmol/L (8-16); CALCIUM 10.6 mg/dL (8.4-10.2); CREATININE, SERUM 0.74 mg/dL (0.72-1.25); POTASSIUM 4.2 mmol/L (3.5-5.1)
[~2022-11-18] MED LIST changes: +ACETAMINOPHEN 1000 MG/100 ML 100 ML IV ONE; +Ampicillin INJ 1 GM Vial ONE; +DEXAMETHASONE SOD PHOS INJ 4 MG/ML SDV ONE; +EPHEDRINE SULFATE INJ 50 MG/ML VIAL ONE; +FENTANYL CITRATE/PF 100MCG/2 ML INJ ONE; -FUROSEMIDE INJ 10 MG/ML 4 ML VIAL ONE; +GENTAMICIN 80MG/NS 100 ML 200 ML IV ONE; -IOPAMIDOL 370 MG/ML 100 ML INFUS..BTL INJ ONE; +IOPAMIDOL 610MG/1ML 300 MG/ML VIAL IV ONE; +LACTATED RINGER'S 1,000 ML ONE; +LIDOCAINE HCL 2% LOCAL INJ 5 ML SDV VIAL INJ ONE; +ONDANSETRON HCL INJ 2MG/ML 2ML 2 MG/ML VIAL ONE; +PHENYLEPHRINE HCL 1% 10 MG/ML VIAL ONE; +POVIDONE IODINE 0.05% 0.05 % ML PO ONE; +PROPOFOL IV EMULSION 10 MG/ML 20 ML VIAL ONE; +SEVOFLURANE INHAL SOLN 250 ML PEN BTL ONE; -SODIUM CHLORIDE 0.9% 250ML 250 ML ONE
[2022-11-18 13:17] VITALS: BP 138/86
== END | disposition home or self-care (01) ==
LOC: OR 05:23
PROVIDERS: ATTEND Urology
DX: N20.0 Calculus of kidney (principal); N20.1 Calculus of ureter; N39.0 Urinary tract infection, site not specified; N35.912 Unspecified bulbous urethral stricture, male; I10 Essential (primary) hypertension; Z01.812 Encounter for preprocedural laboratory examination; Z01.818 Encounter for other preprocedural examination; Z79.899 Other long term (current) drug therapy
CPT/HCPCS: 36415; 50590; 52281; 74018; 80048; 83970; 84550; 85025; 87086; 87186; J0131; J1100; J1580; J2001; J2370; J2405; J2704; J3010; J7121; Q9967

== ENCOUNTER 2023-01-11 14:16 | Inpatient (IN) | payer MEDICARE, BC ==
[~2023-01-11] VITALS: Ht 170.2 cm; Wt 86.6 kg
[~2023-01-11 14:16] MED LIST changes: -ACETAMINOPHEN 1000 MG/100 ML 100 ML IV ONE; -Ampicillin INJ 1 GM Vial ONE; -DEXAMETHASONE SOD PHOS INJ 4 MG/ML SDV ONE; -EPHEDRINE SULFATE INJ 50 MG/ML VIAL ONE; -FENTANYL CITRATE/PF 100MCG/2 ML INJ ONE; -GENTAMICIN 80MG/NS 100 ML 200 ML IV ONE; -IOPAMIDOL 610MG/1ML 300 MG/ML VIAL IV ONE; -LACTATED RINGER'S 1,000 ML ONE; -LIDOCAINE HCL 2% LOCAL INJ 5 ML SDV VIAL INJ ONE; -ONDANSETRON HCL INJ 2MG/ML 2ML 2 MG/ML VIAL ONE; -PHENYLEPHRINE HCL 1% 10 MG/ML VIAL ONE; -POVIDONE IODINE 0.05% 0.05 % ML PO ONE; -PROPOFOL IV EMULSION 10 MG/ML 20 ML VIAL ONE; -SEVOFLURANE INHAL SOLN 250 ML PEN BTL ONE
[2023-01-11] MEDS ORDERED: KETOROLAC TROMETHAMINE 30 MG/ML VIAL IV STA (14:35)
[2023-01-11 15:00] LABS: BASOPHILS # (AUTO) 0.1 (0.0-0.1); BASOPHILS % 0.7 % (0.0-1.0); EOSINOPHILS # (AUTO) 0.1 (0.0-0.4); EOSINOPHILS % 1.3 % (0.0-6.0); HEMATOCRIT 43.1 % (38.2-49.6); HEMOGLOBIN 14.1 g/dL (14.0-18.0); LYMPHOCYTES # (AUTO) 1.4 (1.0-3.2); LYMPHOCYTES % 13.4 % (18.0-39.1); MEAN CORPUSCULAR HEMOGLOBIN 28.8 pg (28-32); MEAN CORPUSCULAR HGB CONC 32.7 g/dL (31-35); MONOCYTES # (AUTO) 0.8 (0.2-0.8); MONOCYTES % 7.2 % (4.4-11.3); NEUTROPHILS # (AUTO) 8.1 (2.1-6.9); NEUTROPHILS % 76.7 % (38.7-80.0); PLATELET COUNT 270 x10e3/uL (140-360); RED CELL DISTRIBUTION WIDTH 14.7 % (11.7-14.4)
[2023-01-11 15:14] LABS: CLARITY,URINE CLEAR (CLEAR); COLOR,URINE YELLOW (YELLOW); LEUKOCYTE ESTERASE ,URINE TRACE (NEGATIVE); NITRITE,URINE NEGATIVE (NEGATIVE)
[2023-01-11 15:15] LABS: KETONES,URINE NEGATIVE (NEGATIVE); PROTEIN,URINE DIPSTICK NEGATIVE (NEGATIVE); RBC,URINE >50 /HPF (0-5); URINE UROBILINOGEN 0.2 mg/dL (0.2 - 1)
[2023-01-11 15:16] LABS: BACTERIA,URINE FEW /HPF; EPITHELIAL CELLS,URINE FEW /LPF; HYALINE CASTS 0-1 (0-1); MUCUS,URINE FEW (RARE)
[2023-01-11 15:17] LABS: CALCIUM 10.4 mg/dL (8.4-10.2); CREATININE, SERUM 0.95 mg/dL (0.72-1.25)
[2023-01-11] MEDS ORDERED: ONDANSETRON HCL INJ 2MG/ML 2ML 2 MG/ML VIAL IV STA (16:47)
[2023-01-11] MEDS ORDERED: Morphine 2mg Syringe 2 MG/ML SYR IV ONE (17:00)
[2023-01-11] MEDS ORDERED: SODIUM CHLORIDE FLUSH 10 ML SYR INJ PRN (17:15)
[2023-01-11 18:28] VITALS: BP 104/88; PULSE 75; RESP 22; TEMP 98.2; O2SAT 95
[2023-01-11 19:15] VITALS: BP 104/88; PULSE 75; RESP 22; TEMP 98.2; O2SAT 95
[2023-01-11 19:19] VITALS: BP 104/88; PULSE 75; RESP 22; TEMP 98.2; O2SAT 95
[2023-01-11 20:49] VITALS: BP 138/87; PULSE 72; RESP 20; TEMP 98.3; O2SAT 96
[2023-01-11] MEDS: SODIUM CHLORIDE 0.9% 1000ML 1,000 ML IV SCH (23:33)
[2023-01-11] MEDS: Morphine 2mg Syringe 2 MG/ML SYR IV PRN (23:46)
[2023-01-12] VITALS (10 sets, daily range): BP systolic 117–138; BP diastolic 81–89; PULSE 62–78; RESP 18–22; TEMP 98.2–98.9; O2SAT 95–96
[2023-01-12] MEDS ORDERED: ALBUTEROL/IPRATROPIUM 3 ML NEB NEB PRN
[2023-01-12] MEDS ORDERED: DEXTROSE 50% SYRINGE 50 ML IV PRN
[2023-01-12] MEDS ORDERED: DOCUSATE SODIUM 100 MG CAP PO PRN
[2023-01-12] MEDS ORDERED: DIPHENHYDRAMINE HCL 25 MG CAP PO PRN
[2023-01-12] MEDS ORDERED: BENZONATATE 100 MG CAP PO PRN
[2023-01-12] MEDS ORDERED: LIDOCAINE 4% PATCH TP PRN
[2023-01-12] MEDS ORDERED: ACETAMINOPHEN 325 MG TAB PO PRN
[2023-01-12] MEDS ORDERED: HYDRALAZINE HCL 20 MG/ML VIAL IV PRN
[2023-01-12] MEDS ORDERED: SIMETHICONE 80 MG CHEW PO PRN
[2023-01-12] MEDS ORDERED: POTASSIUM CHLORIDE 20 MEQ TAB CR PO PRN
[2023-01-12] MEDS ORDERED: IPRATROPIUM BROMIDE 0.02% 2.5 ML NEB NEB PRN (00:15)
[2023-01-12] MEDS ORDERED: ALBUTEROL SULF 0.083% NEB SOLN 3 ML NEB NEB PRN (00:15)
[2023-01-12 05:58] LABS: BASOPHILS # (AUTO) 0.1 (0.0-0.1); BASOPHILS % 0.9 % (0.0-1.0); EOSINOPHILS # (AUTO) 0.3 (0.0-0.4); EOSINOPHILS % 3.7 % (0.0-6.0); HEMATOCRIT 41.3 % (38.2-49.6); HEMOGLOBIN 13.5 g/dL (14.0-18.0); LYMPHOCYTES # (AUTO) 2.4 (1.0-3.2); LYMPHOCYTES % 26.3 % (18.0-39.1); MEAN CORPUSCULAR HEMOGLOBIN 28.8 pg (28-32); MEAN CORPUSCULAR HGB CONC 32.7 g/dL (31-35); MEAN CORPUSCULAR VOLUME 88.1 fL (81-99); MONOCYTES # (AUTO) 0.8 (0.2-0.8); MONOCYTES % 9.3 % (4.4-11.3); NEUTROPHILS # (AUTO) 5.4 (2.1-6.9); NEUTROPHILS % 59.4 % (38.7-80.0); PLATELET COUNT 270 x10e3/uL (140-360); RED BLOOD COUNT 4.69 x10e6/uL (4.3-5.7); RED CELL DISTRIBUTION WIDTH 14.7 % (11.7-14.4)
[2023-01-12 06:35] LABS: CALCIUM 9.2 mg/dL (8.4-10.2); CREATININE, SERUM 0.75 mg/dL (0.72-1.25); MAGNESIUM 1.7 MG/DL (1.3-2.1)
[2023-01-12] MEDS: SODIUM CHLORIDE 0.9% 1000ML 1,000 ML IV SCH ×3 (09:29→22:45)
[2023-01-12] MEDS: PANTOPRAZOLE SOD 40 MG TABEC PO SCH (09:29)
[2023-01-12] MEDS: MELATONIN 5 MG TABLET PO PRN (21:44)
[2023-01-13] VITALS (10 sets, daily range): BP systolic 120–133; BP diastolic 85–90; PULSE 66–85; RESP 16–21; TEMP 98–98.6; O2SAT 95–98
[2023-01-13] MEDS: Morphine 2mg Syringe 2 MG/ML SYR IV PRN ×2 (03:03→20:55)
[2023-01-13] MEDS: SODIUM CHLORIDE 0.9% 1000ML 1,000 ML IV SCH (06:45)
[2023-01-13] MEDS: PANTOPRAZOLE SOD 40 MG TABEC PO SCH (07:30)
[2023-01-13] MEDS ORDERED: IOPAMIDOL 610MG/1ML 300 MG/ML VIAL IV ONE (11:15)
[2023-01-13] MEDS ORDERED: MIDAZOLAM HCL 2 MG/2 ML VIAL ONE (12:06)
[2023-01-13] MEDS ORDERED: FENTANYL CITRATE/PF 100MCG/2 ML INJ ONE (12:06)
[2023-01-13] MEDS ORDERED: GLYCOPYRROLATE INJ 0.2 MG/ML VIAL ONE (12:35)
[2023-01-13] MEDS ORDERED: LIDOCAINE HCL 2% LOCAL INJ 5 ML SDV VIAL INJ ONE (12:35)
[2023-01-13] MEDS ORDERED: SEVOFLURANE INHAL SOLN 250 ML PEN BTL ONE (12:35)
[2023-01-13] MEDS ORDERED: EPHEDRINE SULFATE INJ 50 MG/ML VIAL ONE (12:35)
[2023-01-13] MEDS ORDERED: PROPOFOL IV EMULSION 10 MG/ML 20 ML VIAL ONE (12:35)
[2023-01-13] MEDS ORDERED: POVIDONE IODINE 0.05% 0.05 % ML PO ONE (12:35)
[2023-01-13] MEDS ORDERED: PHENAZOPYRIDINE HCL 100 MG TAB PO PRN (13:15)
[2023-01-13] MEDS: ACETAMINOPHEN/CODEINE 300MG - 30MG TAB PO PRN (14:54)
[2023-01-13] MEDS: MELATONIN 5 MG TABLET PO PRN (20:53)
[2023-01-13] MEDS: ONDANSETRON HCL INJ 2MG/ML 2ML 2 MG/ML VIAL IV PRN (20:54)
[2023-01-14 00:41] VITALS: BP 122/87; PULSE 75; RESP 17; TEMP 97.8; O2SAT 97
[2023-01-14] MEDS: SODIUM CHLORIDE 0.9% 1000ML 1,000 ML IV SCH ×4 (03:50→14:23)
[2023-01-14] MEDS: ONDANSETRON HCL INJ 2MG/ML 2ML 2 MG/ML VIAL IV PRN (03:54)
[2023-01-14] MEDS: Morphine 2mg Syringe 2 MG/ML SYR IV PRN (03:55)
[2023-01-14 05:40] VITALS: BP 120/76; PULSE 76; RESP 16; TEMP 99.2; O2SAT 96
[2023-01-14 05:56] LABS: BASOPHILS # (AUTO) 0.1 (0.0-0.1); BASOPHILS % 0.5 % (0.0-1.0); EOSINOPHILS # (AUTO) 0.2 (0.0-0.4); EOSINOPHILS % 1.4 % (0.0-6.0); HEMATOCRIT 42.2 % (38.2-49.6); HEMOGLOBIN 13.4 g/dL (14.0-18.0); LYMPHOCYTES # (AUTO) 0.8 (1.0-3.2); LYMPHOCYTES % 7.3 % (18.0-39.1); MEAN CORPUSCULAR HEMOGLOBIN 28.7 pg (28-32); MEAN CORPUSCULAR HGB CONC 31.8 g/dL (31-35); MEAN CORPUSCULAR VOLUME 90.4 fL (81-99); MONOCYTES % 9.3 % (4.4-11.3); NEUTROPHILS # (AUTO) 8.5 (2.1-6.9); PLATELET COUNT 255 x10e3/uL (140-360); RED BLOOD COUNT 4.67 x10e6/uL (4.3-5.7); RED CELL DISTRIBUTION WIDTH 14.4 % (11.7-14.4)
[2023-01-14 06:32] LABS: ANION GAP 12.9 mmol/L (8-16); CREATININE, SERUM 0.73 mg/dL (0.72-1.25); POTASSIUM 3.9 mmol/L (3.5-5.1)
[2023-01-14 07:48] VITALS: PULSE 85; RESP 18; O2SAT 94
[2023-01-14] MEDS: PANTOPRAZOLE SOD 40 MG TABEC PO SCH (08:15)
[2023-01-14 08:25] VITALS: BP 120/76; PULSE 76; RESP 16; TEMP 99.2; O2SAT 96
[2023-01-14 08:59] VITALS: BP 134/82; PULSE 82; RESP 19; TEMP 98; O2SAT 95
[2023-01-14] MEDS ORDERED: SOLIFENACIN SUCCINATE 5 MG TAB PO SCH (09:00)
[2023-01-14 12:19] VITALS: BP 130/83; PULSE 72; RESP 20; TEMP 98.9; O2SAT 95
[2023-01-14] MEDS: ACETAMINOPHEN/CODEINE 300MG - 30MG TAB PO PRN (12:34)
== END 2023-01-14 15:09 | disposition home or self-care (01) | DRG 694 ==
LOC: ER 14:21 → ERHOLD 17:11 → MED/SURG2 18:11 → OBSVTOIN 01-12 07:46
PROVIDERS: ADMIT Emergency Medicine; ATTEND Internal Medicine
PROC: BT141ZZ Fluoroscopy of Kidneys, Ureters and Bladder using Low Osmolar Contrast (ICD-10-PCS; 2023-01-13)
PROC: 0TC78ZZ Extirpation of Matter from Left Ureter, Via Natural or Artificial Opening Endoscopic (ICD-10-PCS; principal; 2023-01-13 11:36)
PROC: 0T7D8ZZ Dilation of Urethra, Via Natural or Artificial Opening Endoscopic (ICD-10-PCS; 2023-01-13 11:36)
DX: N13.2 Hydronephrosis with renal and ureteral calculous obstruction (principal); N35.919 Unspecified urethral stricture, male, unspecified site; I10 Essential (primary) hypertension; N40.0 Benign prostatic hyperplasia without lower urinary tract symptoms; N28.9 Disorder of kidney and ureter, unspecified; Z20.822 Contact with and (suspected) exposure to COVID-19
CPT/HCPCS: 36415; 74176; 74420; 80048; 81001; 82948; 83735; 85025; 88300; 94760; 94799; 99284; C1758; C1769; C1874; G0378; J0696; J1885; J2001; J2250; J2270; J2405; J7030

== ENCOUNTER → 2023-11-17 | Day surgery (SDC) | payer MEDICARE, BC ==
[2023-11-16 14:27] LABS: BASOPHILS # (AUTO) 0.1 (0.0-0.1); BASOPHILS % 1.1 % (0.0-1.0); EOSINOPHILS # (AUTO) 0.4 (0.0-0.4); EOSINOPHILS % 4.3 % (0.0-6.0); HEMATOCRIT 41.2 % (38.2-49.6); HEMOGLOBIN 13.9 g/dL (14.0-18.0); LYMPHOCYTES # (AUTO) 1.7 (1.0-3.2); LYMPHOCYTES % 18.9 % (18.0-39.1); MEAN CORPUSCULAR HEMOGLOBIN 29.1 pg (28-32); MEAN CORPUSCULAR HGB CONC 33.7 g/dL (31-35); MEAN CORPUSCULAR VOLUME 86.4 fL (81-99); MONOCYTES % 10.8 % (4.4-11.3); NEUTROPHILS # (AUTO) 5.8 (2.1-6.9); NEUTROPHILS % 64.5 % (38.7-80.0); PLATELET COUNT 313 x10e3/uL (140-360); RED BLOOD COUNT 4.77 x10e6/uL (4.3-5.7); RED CELL DISTRIBUTION WIDTH 15.5 % (11.7-14.4); WHITE BLOOD COUNT 8.93 x10e3/uL (4.8-10.8)
[2023-11-16 14:42] LABS: CREATININE, SERUM 0.74 mg/dL (0.72-1.25)
[~2023-11-17] MED LIST changes: +ALLEGRA ALLERGY60 MG PO; +ATORVASTATIN CA10 MG PO; +EPHEDRINE SULFATE INJ 50 MG/ML VIAL ONE; +FENTANYL CITRATE/PF 100MCG/2 ML INJ ONE; +FLOMAX0.4 MG PO; +GLYCOPYRROLATE INJ 0.2 MG/ML VIAL ONE; +LIDOCAINE HCL 2% LOCAL INJ 5 ML SDV VIAL INJ ONE; +MIRTAZAPINE15 MG PO; +PROPOFOL IV EMULSION 10 MG/ML 20 ML VIAL ONE; +SEVOFLURANE INHAL SOLN 250 ML PEN BTL ONE; +TAMSULOSIN PO
[2023-11-17] MEDS: LACTATED RINGER'S 1,000 ML ONE (07:35)
[2023-11-17] MEDS: CEFTRIAXONE 1 GM VIAL ONE (07:35)
[2023-11-17 10:15] VITALS: BP 136/90; PULSE 75; RESP 18; O2SAT 96
== END | disposition home or self-care (01) ==
LOC: OR 06:58
PROVIDERS: ATTEND Urology
DX: N20.0 Calculus of kidney (principal); Z96.0 Presence of urogenital implants; N13.30 Unspecified hydronephrosis; G47.33 Obstructive sleep apnea (adult) (pediatric); I10 Essential (primary) hypertension; Z01.812 Encounter for preprocedural laboratory examination; Z01.818 Encounter for other preprocedural examination; Z79.899 Other long term (current) drug therapy
CPT/HCPCS: 36415; 50590; 74018; 80048; 84550; 85025; J0696; J2001; J2704; J3010; J7121

== ENCOUNTER → 2024-12-18 | Day surgery (SDC) | payer MEDICARE, BC ==
[2024-12-17 13:16] LABS: BASOPHILS # (AUTO) 0.1 (0.0-0.1); BASOPHILS % 0.6 % (0.0-1.0); EOSINOPHILS # (AUTO) 0.1 (0.0-0.4); EOSINOPHILS % 1.5 % (0.0-6.0); HEMOGLOBIN 13.2 g/dL (14.0-18.0); LYMPHOCYTES # (AUTO) 1.2 (1.0-3.2); LYMPHOCYTES % 12.8 % (18.0-39.1); MEAN CORPUSCULAR HEMOGLOBIN 27.9 pg (28-32); MEAN CORPUSCULAR HGB CONC 32.2 g/dL (31-35); MEAN CORPUSCULAR VOLUME 86.7 fL (81-99); MONOCYTES # (AUTO) 0.6 (0.2-0.8); MONOCYTES % 6.7 % (4.4-11.3); NEUTROPHILS # (AUTO) 7.3 (2.1-6.9); NEUTROPHILS % 78.1 % (38.7-80.0); PLATELET COUNT 281 x10e3/uL (140-360); RED BLOOD COUNT 4.73 x10e6/uL (4.3-5.7); RED CELL DISTRIBUTION WIDTH 15.4 % (11.7-14.4); WHITE BLOOD COUNT 9.36 x10e3/uL (4.8-10.8)
[2024-12-17 13:36] LABS: ANION GAP 14.9 mmol/L (8-16); CREATININE, SERUM 0.72 mg/dL (0.72-1.25); POTASSIUM 3.9 mmol/L (3.5-5.1)
[~2024-12-18] MED LIST changes: +DEXAMETHASONE SOD PHOS INJ 4 MG/ML SDV ONE; +DOXYCYCLINE HY100 M3; +FINASTERIDE5 MG PO; -GLYCOPYRROLATE INJ 0.2 MG/ML VIAL ONE; +LEVOFLOXACIN500 MG PO; -LIDOCAINE HCL 2% LOCAL INJ 5 ML SDV VIAL INJ ONE; +ONDANSETRON HCL INJ 2MG/ML 2ML 2 MG/ML VIAL ONE; +OXYBUTYNIN CHLOR5 MG PO; -PROPOFOL IV EMULSION 10 MG/ML 20 ML VIAL ONE; +QUETIAPINE FUM400 MG; +VENLAFAXINE HCL75 M2 PO; +VESICARE10 MG
[2024-12-18] MEDS: SODIUM CHLORIDE 0.9% 1000ML 1,000 ML ONE (11:32)
[2024-12-18] MEDS: MEROPENEM 1 GM VIAL ONE (11:33)
[2024-12-18] MEDS: GENTAMICIN 80MG/NS 100 ML 200 ML IV ONE (11:34)
[2024-12-18] MEDS: FENTANYL CITRATE/PF 100MCG/2 ML INJ ONE (13:10)
[2024-12-18] MEDS: PHENAZOPYRIDINE HCL 100 MG TAB ONE (13:20)
[2024-12-18] MEDS: HYDRALAZINE HCL 20 MG/ML VIAL ONE (13:35)
[2024-12-18 14:21] VITALS: BP 152/89; PULSE 76; RESP 18; O2SAT 97
== END | disposition home or self-care (01) ==
LOC: OR 10:07
PROVIDERS: ATTEND Urology
DX: N40.1 Benign prostatic hyperplasia with lower urinary tract symptoms (principal); N13.8 Other obstructive and reflux uropathy; N42.89 Other specified disorders of prostate; N32.89 Other specified disorders of bladder; N39.0 Urinary tract infection, site not specified; N35.812 Other bulbous urethral stricture, male; Z98.890 Other specified postprocedural states; G47.33 Obstructive sleep apnea (adult) (pediatric); I10 Essential (primary) hypertension; E78.5 Hyperlipidemia, unspecified; Z87.891 Personal history of nicotine dependence; N20.0 Calculus of kidney; M06.9 Rheumatoid arthritis, unspecified; M19.90 Unspecified osteoarthritis, unspecified site; Z01.812 Encounter for preprocedural laboratory examination; Z01.818 Encounter for other preprocedural examination; Z79.1 Long term (current) use of non-steroidal anti-inflammatories (NSAID); Z79.899 Other long term (current) drug therapy
CPT/HCPCS: 36415; 52005; 52630; 71046; 74420; 80048; 85025; C1758; J0360; J1100; J1580; J2185; J2405; J3010; J7030

== ENCOUNTER → 2025-02-03 | Outpatient (REF) | payer MEDICARE, BC ==
[~2025-02-03] MED LIST changes: -DEXAMETHASONE SOD PHOS INJ 4 MG/ML SDV ONE; -EPHEDRINE SULFATE INJ 50 MG/ML VIAL ONE; -FENTANYL CITRATE/PF 100MCG/2 ML INJ ONE; -ONDANSETRON HCL INJ 2MG/ML 2ML 2 MG/ML VIAL ONE; -SEVOFLURANE INHAL SOLN 250 ML PEN BTL ONE
== END ==
LOC: CT 11:34
PROVIDERS: ATTEND Urology
DX: N20.0 Calculus of kidney (principal)
CPT/HCPCS: 74176

== ENCOUNTER → 2025-03-14 | Day surgery (SDC) | payer MEDICARE, BC ==
[2025-03-13 09:27] LABS: BASOPHILS % 0.7 % (0.0-1.0); EOSINOPHILS % 2.8 % (0.0-6.0); LYMPHOCYTES % 11.9 % (18.0-39.1); MONOCYTES % 7.4 % (4.4-11.3); NEUTROPHILS % 76.9 % (38.7-80.0); RED CELL DISTRIBUTION WIDTH 16.4 % (11.7-14.4)
[2025-03-13 10:04] LABS: EST GLOMERULAR FILTRATION RATE 97.0 ML/MIN (>=60)
[~2025-03-14] MED LIST changes: +ACETAMINOPHEN 1000 MG/100 ML 100 ML IV ONE; +EPHEDRINE SULFATE INJ 50 MG/ML VIAL ONE; +FENTANYL CITRATE/PF 100MCG/2 ML INJ ONE; +LIDOCAINE HCL 2% LOCAL INJ 5 ML SDV VIAL INJ ONE; +PROPOFOL IV EMULSION 10 MG/ML 20 ML VIAL ONE
[2025-03-14] MEDS: SODIUM CHLORIDE 0.9% 1000ML 1,000 ML ONE (08:29)
[2025-03-14] MEDS: CEFTRIAXONE 1 GM VIAL ONE (08:29)
[2025-03-14 10:26] VITALS: TEMP 98.1
[2025-03-14 11:40] VITALS: BP 150/91; PULSE 70; RESP 16; O2SAT 97
== END | disposition home or self-care (01) ==
LOC: OR 07:22
PROVIDERS: ATTEND Urology
DX: N20.0 Calculus of kidney (principal); N13.30 Unspecified hydronephrosis; N35.812 Other bulbous urethral stricture, male; Q63.2 Ectopic kidney; N39.0 Urinary tract infection, site not specified; N32.89 Other specified disorders of bladder; N40.0 Benign prostatic hyperplasia without lower urinary tract symptoms; G47.33 Obstructive sleep apnea (adult) (pediatric); I10 Essential (primary) hypertension; E78.5 Hyperlipidemia, unspecified; F17.210 Nicotine dependence, cigarettes, uncomplicated; Z01.810 Encounter for preprocedural cardiovascular examination; Z01.812 Encounter for preprocedural laboratory examination; Z01.818 Encounter for other preprocedural examination; Z79.1 Long term (current) use of non-steroidal anti-inflammatories (NSAID); Z79.899 Other long term (current) drug therapy; Z98.890 Other specified postprocedural states
CPT/HCPCS: 36415; 50590; 52332; 74018; 80053; 83970; 84550; 85025; 87086; 87186; 93005; C1758; C1769; C2617; J0131; J0696; J2003; J2704; J7030